=== PATIENT | male | born 1950 | race Caucasian/White ===

== ENCOUNTER → 2016-09-23 | Outpatient (CLI) | payer MEDICARE ==
[2016-03-06 14:22] VITALS: BP 110/74
[~2016-09-23] MED LIST: ASPI325T4 PO; ATOR40TA59 PO; BRIM5DRO3 OP; CHOL100013 PO; DORZ10DR21 OP; HYDR-2762 PO; OMEP20CA9 PO; OXYC-244 PO; OXYC-250 PO; THEO400T2 PO; [UNRECOGNIZED DRUG - CODE] MC; [UNRECOGNIZED DRUG - OTHER]
--- NOTE | 2016-09-24 06:37 | PAIN ---
DATE OF SERVICE: 09/23/2016 PROGRESS NOTE FOR PAIN CLINIC DIAGNOSES: Lumbar radiculopathy with lumbar degenerative disk disease. HISTORY OF PRESENT ILLNESS: The patient is a 66-year-old male who returns for followup status post lumbar epidural steroid injection. The patient returns to report about 50% improvement after the last injection. Still some pain in the low back and bilateral lower extremities, radiating to thighs and hips and to the lower legs, mostly posteriorly and laterally, little worse on the right than the left, but still present bilaterally. The patient reports no new motor or sensory deficits, rates his pain as 6 on a scale of 10, describes some dull pain with some sharp pain in the right leg, mainly in the lateral and posterior thigh. The patient reports no new motor or sensory deficits; however, no new bowel or bladder deficits or other complaints. PHYSICAL EXAMINATION: VITAL SIGNS: The patient's blood pressure is 136/96, pulse 73, respirations are 18, temperature is 98.2 degrees Fahrenheit and weight is 254 pounds. GENERAL: The patient is awake, alert, oriented, and appropriate. HEENT: Shows normocephalic, atraumatic. The patient's oral cavity shows mucous membranes are moist and pink. Dentition is intact. NECK: Shows anterior throat supple without palpable lymphadenopathy noted. Swallow reflex is symmetrical. CHEST: Shows normal on inspection. Breath sounds are clear to auscultation bilaterally. HEART: Shows S1 and S2 clear. ABDOMEN: Soft, nontender, nondistended. No palpable organomegaly. No rebound or guarding demonstrated. BACK: Shows spine grossly in the midline. Normal appearing thoracic kyphosis and lumbar lordotic curvature. No previous bruises, lesions, rashes or scars are noted. Lumbar paraspinous musculature shows symmetrical on inspection, moderate tenderness with palpation only in the low lumbar distribution bilaterally without radiation, without atrophy, hypertrophy. No tenderness over the sacrum or sacroiliac regions. EXTREMITIES: Lower extremities showed deep tendon reflexes at 1+ in the patellar and tendo calcaneus tendons, equal. Motor exam is strong with 5/5 dorsiflexion, extension, quadriceps and hamstring flexion and equal and symmetrical as well. Options were discussed with the patient at this time. The patient's old chart was reviewed and his current medication regimen updated. Current review of systems updated today as well. We will proceed with a second lumbar epidural steroid injection with fluoroscopic guidance. Risks were again discussed including, but not limited to bleeding, infection, possibility of epidural hematoma, subsequent neurological compromise, dural puncture, headaches, spinal cord and/or nerve damage, side effects of steroid medication and poor results regarding pain control. The patient understands and wishes to proceed. The patient will return to clinic in approximately 2 weeks for followup, was counseled on return appointment, activity level and side effects to be aware of. DIAGNOSES: Lumbar radiculopathy with lumbar degenerative disk disease. PROCEDURES: Lumbar epidural steroid injection in translaminar approach at the L5-S1 level using C-arm fluoroscopic guidance under sterile prep and drape using local anesthetic. MEDICATION INJECTED: 120 mg Depo-Medrol plus 10 mL of preservative-free normal saline and 2 mL of Isovue for contrast. CONDITION AT DISCHARGE: Stable. The patient tolerated the procedure well, had no complications. JUAN TAYLOR MD DR: SHIKHA/akash JOB#: [id number] / [id number]
== END | disposition home or self-care (01) ==
LOC: PNCL 07:42
PROVIDERS: ATTEND Anesthesiology
DX: M51.16 Intervertebral disc disorders with radiculopathy, lumbar region (principal)
CPT/HCPCS: 62323

== ENCOUNTER → 2016-11-17 | Outpatient (CLI) | payer MEDICARE ==
[2016-03-06 14:22] VITALS: BP 110/74
[~2016-11-17] MED LIST changes: +IOHEXOL 180 MG/ML 10 ML VIAL. ONE; +methylPREDNISolone ACETATE 40 MG/ML VIAL. ONE; +methylPREDNISolone ACETATE 80 MG/ML VIAL. ONE
--- NOTE | 2016-11-17 21:49 | PAIN ---
DATE OF SERVICE: 11/17/2016 PROGRESS NOTE FOR PAIN CLINIC DIAGNOSES: Lumbar radiculopathy with lumbar degenerative disk disease. HISTORY OF PRESENT ILLNESS: The patient is a 66-year-old male, who returns for followup status post lumbar epidural steroid injection x 2 on 09/23/2016. The patient reports he did very well with this, pain is returning now for about 60% improvement overall, now this was about 80%, but the pain is beginning to return now in low back, bilateral lower extremities are sharp dull, tight shooting with some burning and tingling radiated in severe pain with activity and standing for more than about 30 minutes or so. The patient reports he ____ about 4 hours at night, because the pain is waking him up ____ trouble with his right knee, which is becoming more and more painful and scheduled for potential evaluation for knee replacement later this summer. The patient reports his pain is a 4 on a scale 10, currently it can be as high as 8 to 9 with standing and walking. The patient reports no new motor or sensory deficits, no new bowel or bladder incontinence or other complaints. PHYSICAL EXAMINATION: VITAL SIGNS: The patient's blood pressure 108/60, pulse 71, respirations are 16, temperature 98.3 degrees Fahrenheit, weight is 253 pounds. GENERAL: The patient is awake, alert, oriented, appropriate, very pleasant demeanor. HEENT: Shows normocephalic, atraumatic. Extraocular movements are intact and symmetrical. Oral cavity, mucous membranes moist and pink. Dentition is intact. NECK: Shows anterior throat supple without palpable lymphadenopathy noted. Swallow reflex is symmetrical. CHEST: Shows normal on inspection. Breath sounds clear to auscultation bilaterally. HEART: Shows S1 and S2 clear. No murmurs auscultated. ABDOMEN: Obese, soft, nontender, nondistended. No palpable organomegaly is noted. No rebound or guarding demonstrated. BACK: The patient's back shows spine grossly midline. Normal appearing thoracic kyphosis and lumbar lordotic curvature. Lumbar paraspinous muscle shows some moderate tenderness to palpation, but only diffusely and appears symmetrical on inspection. No tenderness over the sacrum or sacroiliac regions. EXTREMITIES: Lower extremities showed deep tendon reflexes 1+ in the patellar and tendo calcaneus tendons. Motor exam is strong and equal with 5/5 dorsiflexion, extension, quadriceps and hamstring flexion and symmetrical. Options were discussed with the patient and the patient's old chart was reviewed as his current medication regimen updated. Current review of systems updated today as well. We will proceed with a third in the series of lumbar epidural steroid injection today with fluoroscopic guidance. Risks were again discussed including, but not limited to bleeding, infection, possibility of epidural hematoma, subsequent neurologic compromise, dural puncture, headaches, spinal cord and/or nerve damage, side effects of steroid medication and poor results regarding pain control. The patient understands and wishes to proceed. The patient will return to clinic in approximately 2 weeks for followup. He was counseled as to return appointment, activity level and side effects to be aware of. DIAGNOSES: Lumbar radiculopathy with lumbar degenerative disk disease. PROCEDURES: Lumbar epidural steroid injection in translaminar approach at the L5-S1 level using fluoroscopic guidance under sterile prep and drape using local anesthetic. MEDICATIONS INJECTED: Depo-Medrol 120 mg plus 10 mL preservative-free normal saline and 2 mL Isovue for contrast. CONDITION AT DISCHARGE: Stable. The patient tolerated the procedure well and had no complications. JUAN TAYLOR MD DR: SHIKHA/akash JOB#: [id number] / [id number]
== END | disposition home or self-care (01) ==
LOC: PNCL 07:48
PROVIDERS: ATTEND Anesthesiology
DX: M51.16 Intervertebral disc disorders with radiculopathy, lumbar region (principal)
CPT/HCPCS: 62323; J1030; J1040

== ENCOUNTER → 2017-01-30 | Outpatient (CLI) | payer MEDICARE ==
[2016-03-06 14:22] VITALS: BP 110/74
[~2017-01-30] MED LIST changes: -ASPI325T4 PO; +ASPI325T8 PO; -OXYC-244 PO; -OXYC-250 PO; +OXYC-327 PO; +OXYC-328 PO
== END | disposition home or self-care (01) ==
LOC: PNCL 08:28
PROVIDERS: ATTEND Anesthesiology
DX: M51.16 Intervertebral disc disorders with radiculopathy, lumbar region (principal); Z88.0 Allergy status to penicillin; Z88.2 Allergy status to sulfonamides; Z88.7 Allergy status to serum and vaccine
CPT/HCPCS: 62323; J1030; J1040

== ENCOUNTER → 2017-04-03 | Outpatient (CLI) | payer MEDICARE ==
[2016-03-06 14:22] VITALS: BP 110/74
--- NOTE | 2017-04-03 21:06 | PAIN ---
DATE OF SERVICE: 04/03/2017 DIAGNOSIS: Lumbar radiculopathy with lumbar degenerative disk disease. HISTORY OF PRESENT ILLNESS: The patient is a 66-year-old male who returns for followup status post lumbar epidural steroid injection x 1, last seen 01/30/2017. The patient reports he did very well with this with about a 70% improvement overall. Pain returning now over the past few weeks in the low back, bilateral lower extremities, mostly posterior gluteus, posterior thighs, posterior calf, tingling, burning, cramping, stabbing, dull, sharp, tight, shooting, aching, radiating, can be constant or severe, worse with standing. It is better with sitting or lying down. The patient reports it wakes him from sleep occasionally, but not every night. He sleeps up to 4-5 hours at a time. The patient's pain is a 10 on a scale of 10 at its worst, 6 at its least, its average about 6. The patient reports no new motor or sensory deficits, no new bowel or bladder incontinence or other complaints. PHYSICAL EXAMINATION: VITAL SIGNS: The patient's blood pressure 129/81, pulse 83, respirations 18, temperature 98.1 degrees Fahrenheit, height 6 feet 1 inch, weight is 245 pounds. GENERAL: The patient is awake, alert, oriented, appropriate, very pleasant demeanor. HEENT: Head shows normocephalic, atraumatic. Extraocular movements are intact, symmetrical. Oral cavity, mucous membranes are moist and pink. Dentition is intact. NECK: Shows anterior throat supple. Swallow reflex is symmetrical. Neck shows full rotational motion of the cervical spine without difficulty. LUNGS: Breath sounds show clear to auscultation bilaterally. HEART: Shows S1 and S2 clear. No murmurs auscultated. ABDOMEN: Obese, soft, nontender, nondistended. BACK: Shows spine grossly midline. Normal appearing thoracic kyphosis and mild flattening of lumbar lordotic curvature. Lumbar paraspinous musculature shows symmetrical on inspection with palpation. Shows moderate tenderness with palpation, but only in the low lumbar distribution bilaterally, but only diffusely without radiation. No tenderness over the sacrum or sacroiliac regions. LOWER EXTREMITIES: Showed deep tendon reflexes 1+ in the patellar and tendo calcaneus tendons. Motor exam is strong with 5/5 dorsiflexion, extension, quadriceps and hamstring flexion and equal. Peripheral pulses are 1+ posterior tibial bilaterally. The patient has a drain on his left lateral hip from recent surgery about a week and a half ago by his report with clean and intact dressing, no drainage. Drain is dry and reports it has been for several days. He is having this removed later this week. Options were discussed with the patient and the patient's old chart was reviewed as his current medication regimen and updated. Current review of systems updated today as well. We will proceed with a second in the series of lumbar epidural steroid injection with fluoroscopic guidance. Risks were again discussed including, but not limited to bleeding, infection, possibility of epidural hematoma and subsequent neurologic compromise, dural puncture, headaches, spinal cord and/or nerve damage, side effects of steroid medication and poor results regarding pain control. The patient understands and wishes to proceed. The patient will return to clinic in approximately 2 weeks for followup, was counseled on return appointment, activity level and side effects to be aware of. The patient was given refill prescription for oxycodone 10 mg with instructions and side effects to be aware of discussed as well. Discussed maintaining hydration as well as the patient's diet, exercise and weight loss and he will maintain his exercise regimen as best he can. Again with his hip healing, this may improve once this is further healed. DIAGNOSIS: Lumbar radiculopathy with lumbar degenerative disk disease. PROCEDURE: Lumbar epidural steroid injection in translaminar approach at the L5-S1 level using C-arm fluoroscopic guidance under sterile prep and drape using local anesthetic. MEDICATIONS INJECTED: A total of 120 mg Depo-Medrol plus 10 mL of preservative-free normal saline and 2 mL of Isovue for contrast. CONDITION AT DISCHARGE: Stable. The patient tolerated procedure well, had no complications. JUAN TAYLOR MD DR: SHIKHA/akash JOB#: [id number] / [id number]
== END | disposition home or self-care (01) ==
LOC: PNCL 08:38
PROVIDERS: ATTEND Anesthesiology
DX: M51.16 Intervertebral disc disorders with radiculopathy, lumbar region (principal); Z88.0 Allergy status to penicillin; Z88.2 Allergy status to sulfonamides; Z88.7 Allergy status to serum and vaccine
CPT/HCPCS: 62323; J1030; J1040

== ENCOUNTER → 2017-07-25 | Outpatient (CLI) | payer MEDICARE ==
[~2017-07-25] MED LIST changes: -ASPI325T8 PO; -ATOR40TA59 PO; -BRIM5DRO3 OP; -CHOL100013 PO; -DORZ10DR21 OP; -HYDR-2762 PO; +IOHEXOL 180 MG/ML 10 ML VIAL.; -IOHEXOL 180 MG/ML 10 ML VIAL. ONE; -OMEP20CA9 PO; -OXYC-327 PO; -OXYC-328 PO; -THEO400T2 PO; -[UNRECOGNIZED DRUG - CODE] MC; -[UNRECOGNIZED DRUG - OTHER]; +methylPREDNISolone ACETATE 40 MG/ML VIAL.; -methylPREDNISolone ACETATE 40 MG/ML VIAL. ONE; +methylPREDNISolone ACETATE 80 MG/ML VIAL.; -methylPREDNISolone ACETATE 80 MG/ML VIAL. ONE
== END | disposition home or self-care (01) ==
LOC: PNCL 07:53
DX: M51.16 Intervertebral disc disorders with radiculopathy, lumbar region (principal); Z88.0 Allergy status to penicillin; Z88.2 Allergy status to sulfonamides; Z88.7 Allergy status to serum and vaccine
CPT/HCPCS: 62323; J1030; J1040

== ENCOUNTER → 2017-09-26 | Outpatient (CLI) | payer MEDICARE | END | disposition home or self-care (01) | LOC: PNCL 08:00 | DX: M51.16 Intervertebral disc disorders with radiculopathy, lumbar region (principal); Z79.899 Other long term (current) drug therapy; M54.5 Low back pain; Z88.2 Allergy status to sulfonamides; Z88.0 Allergy status to penicillin; Z88.7 Allergy status to serum and vaccine | CPT/HCPCS: 62323; J1030; J1040; Q9965 ==

== ENCOUNTER → 2017-11-21 | Outpatient (CLI) | payer MEDICARE | END | disposition home or self-care (01) | LOC: PNCL 11:23 | DX: M51.16 Intervertebral disc disorders with radiculopathy, lumbar region (principal); Z88.0 Allergy status to penicillin; Z88.2 Allergy status to sulfonamides; Z88.7 Allergy status to serum and vaccine | CPT/HCPCS: 62323; J1030; J1040; Q9965 ==

== ENCOUNTER → 2018-01-22 | Outpatient (CLI) | payer MEDICARE ==
[~2018-01-22] MED LIST changes: +LIDOCAINE 1% PF 2 ML VIAL.
== END ==
LOC: PNCL 07:38
DX: M51.16 Intervertebral disc disorders with radiculopathy, lumbar region (principal); Z79.82 Long term (current) use of aspirin; Z88.0 Allergy status to penicillin; Z88.2 Allergy status to sulfonamides; Z88.7 Allergy status to serum and vaccine
CPT/HCPCS: 62323; J1030; J1040; Q9965

== ENCOUNTER → 2018-03-19 | Outpatient (CLI) | payer MEDICARE ==
[2016-03-06 14:22] VITALS: BP 110/74
[~2018-03-19] MED LIST changes: +ASPI325T8 PO; +ATOR40TA59 PO; +BRIM5DRO3 OP; +CHOL100013 PO; +DORZ10DR21 OP; +HYDR-2762 PO; -IOHEXOL 180 MG/ML 10 ML VIAL.; -LIDOCAINE 1% PF 2 ML VIAL.; +MELO7.5T29 PO; +OMEP20CA9 PO; +OXYC-327 PO; +OXYC-328 PO; +TAMS0.4C2 PO; +THEO400T2 PO; +[UNRECOGNIZED DRUG - CODE] MC; +[UNRECOGNIZED DRUG - OTHER]; -methylPREDNISolone ACETATE 40 MG/ML VIAL.; -methylPREDNISolone ACETATE 80 MG/ML VIAL.
--- NOTE | 2018-03-19 08:55 | PAIN ---
DATE OF SERVICE: 03/19/2018 PROGRESS NOTE FOR PAIN CLINIC DIAGNOSIS: Lumbar radiculopathy with lumbar degenerative disk disease this point. HISTORY OF PRESENT ILLNESS: The patient is a 67-year-old male who returns for followup status post lumbar epidural steroid injection x 1, this series 01/22/2018. The patient reports about 50% improvement overall, but he recently 2 weeks ago had knee surgery on his right knee with knee replacement and is doing well. He is rehabbing with this, reports he has had some significant pain, which is alter his back and he has been having to walk differently with his knee but otherwise doing much better. The patient reports his pain is 8 on a scale of 10 on average and 10 at its worst, 5 at its least and is a 5 today. The patient reports it is aching, sharp, dull, tight, shooting, cramping, tingling, burning with radiating pain becoming constant at times with walking and standing. No new motor or sensory deficits and no new bowel or bladder incontinence or other complaints. The patient reports that his knee is rehabing well. He has had about 2 weeks since the surgery after replacement and his back is already feeling a little bit better. The patient reports he is sleeping well at night, does not bother him when he is off his feet, sitting, lying down, mostly with walking and standing. PHYSICAL EXAMINATION: VITAL SIGNS: The patient's blood pressure 130/82, pulse 109, respirations 18, temperature 98.8 degrees Fahrenheit, height 6 feet and weight is 237 pounds. GENERAL: The patient is awake, alert, oriented, appropriate and very pleasant demeanor. HEENT: Head is normocephalic and atraumatic. Extraocular movements intact and symmetrical. Oral cavity: Mucous membranes are moist and pink. Dentition is intact. NECK: Shows anterior throat supple without palpable lymphadenopathy noted. Swallow reflex symmetrical. CHEST: Shows normal on inspection. Breath sounds clear to auscultation bilaterally. HEART: Shows S1 and S2 clear. No murmurs auscultated. ABDOMEN: Soft, nontender and nondistended. No palpable organomegaly is noted. No rebound or guarding demonstrated. BACK: Shows spine grossly in the midline. Normal appearing thoracic kyphosis and lumbar lordotic curvature. Lumbar paraspinous muscle shows symmetrical on inspection and palpation shows some moderate tenderness but only diffusely bilaterally without radiation, without asymmetry, without atrophy or hypertrophy, no trigger points. The patient has good rotational motion of the lumbar spine, both laterally as well as extension and flexion without significant difficulty. EXTREMITIES: Lower extremity shows a well-healed and bandaged right knee with a supportive brace. Dorsiflexion, extension is intact at 5/5. Deep tendon reflexes are 1+ in the tendo-calcaneus tendons bilaterally. Peripheral pulses are 1+ posterior tibial bilaterally without edema noted. Options were discussed with the patient. The patient's old chart was reviewed as well as his current medication regimen updated. Current review of systems is updated today as well. We will hold on any further injections at this time as the patient's back is doing quite a bit better. He would like to wait for rehabilitation with his need to complete as well prior to any more injections. We will refill his oxycodone 10 mg. The patient was given instruction as well as side effects to be aware of. The patient has had appropriate K-TR[facility] reporting as well as appropriate urinalysis to date with the medications refilled thus for a 2-month period. The patient will return to clinic within the next 2 months or as necessary, sooner if his back becomes more painful. He has radicular pain becomes more noticeable. The patient was encouraged to maintain his rehabilitation with his knee as instructed and will follow up in approximately 2 months or sooner as necessary. JUAN TAYLOR MD DR: SHIKHA/akash JOB#: [id number] / [id number]
== END | disposition home or self-care (01) ==
LOC: PNCL 07:45
PROVIDERS: ATTEND Anesthesiology
DX: M51.16 Intervertebral disc disorders with radiculopathy, lumbar region (principal); K21.9 Gastro-esophageal reflux disease without esophagitis; Z96.643 Presence of artificial hip joint, bilateral; Z90.49 Acquired absence of other specified parts of digestive tract; Z88.2 Allergy status to sulfonamides; Z88.7 Allergy status to serum and vaccine; Z88.0 Allergy status to penicillin
CPT/HCPCS: G0463

== ENCOUNTER → 2018-05-18 | Outpatient (CLI) | payer MEDICARE ==
[2016-03-06 14:22] VITALS: BP 110/74
[~2018-05-18] MED LIST changes: +IOHEXOL 180 MG/ML 10 ML VIAL. ONE; +LIDOCAINE 1% PF 2 ML VIAL. ONE; +methylPREDNISolone ACETATE 40 MG/ML VIAL. ONE; +methylPREDNISolone ACETATE 80 MG/ML VIAL. ONE
--- NOTE | 2018-05-19 04:13 | PAIN ---
DATE OF SERVICE: 05/18/2018 DIAGNOSES: Lumbar radiculopathy with lumbar degenerative disk disease. HISTORY OF PRESENT ILLNESS: The patient is a 67-year-old male who returns for followup status post lumbar epidural steroid injection x 1 this series. The patient did very well with about 50-75% improvement initially. The patient recently had his knee replaced and is doing much better with his right knee. The patient reports he is continuing through the rehab process with his right knee and doing quite well with it and is feeling much better with his right knee. The patient reports still significant pain in the low back radiating to the bilateral lower extremities, posterior gluteus, posterior thighs, somewhat worse on the left now and into the lower leg, into the calf and foot. The patient reports it is aching, sharp, tight, shooting, dull, burning, tingling, radiating, becoming more constant, more severe with walking, worse with standing, changing positions, better with sitting or lying down, but does awakening him sleep about every 4-5 hours, especially if he lies on his left side. The patient reports initially it decreased his distance walking, doing household activity with greater ease and comfort, but now these are becoming more noticeably painful. No new motor or sensory deficits reported. The patient reports no new bowel or bladder incontinence. PHYSICAL EXAMINATION: VITAL SIGNS: The patient's blood pressure 142/84, pulse 72, respirations 16, temperature 98.4 degrees Fahrenheit, height is 6 feet, weight is 244 pounds. GENERAL: The patient is awake, alert, oriented, appropriate, very pleasant demeanor. HEENT: Shows normocephalic, atraumatic. Extraocular movements are intact and symmetrical. Oral cavity: Mucous membranes moist and pink. Dentition is intact. NECK: Shows anterior throat supple without palpable lymphadenopathy noted. Swallow reflex is symmetrical. CHEST: Shows normal on inspection. Breath sounds clear to auscultation bilaterally. HEART: Shows S1, S2 clear. No murmurs auscultated. ABDOMEN: Obese, soft, nontender, nondistended. No palpable organomegaly is noted. No rebound or guarding demonstrated. BACK: Shows spine grossly in the midline. Normal appearing thoracic kyphosis and some slight flattening of lumbar lordotic curvature. Lumbar paraspinous muscle shows symmetrical on inspection. On palpation shows some moderate tenderness diffusely bilaterally, but only in the low lumbar distribution without radiation. The patient shows no difficulty with rotational motion both laterally as well as extension and flexion, no tenderness over the sacrum or sacroiliac regions. EXTREMITIES: The patient's lower extremities show deep tendon reflexes at 1+ in the patellar and tendo calcaneus tendons are equal. Motor exam is strong with 5/5 dorsiflexion, extension, quadriceps and hamstring flexion and symmetrical. Peripheral pulses are 1+ posterior tibia. No peripheral edema is noted bilaterally. Options were discussed with the patient. The patient's old chart was reviewed as is his current medication regimen updated. Current review of systems is updated today as well. We will proceed with second in a series of lumbar epidural steroid injection today with fluoroscopic guidance. Risks were again discussed including, but not limited to bleeding, infection, possibility of epidural hematoma, subsequent neurologic compromise, dural puncture, headaches, spinal cord and/or nerve damage, side effects of steroid medication and poor results regarding pain control. The patient understands and wished to proceed. The patient will return to the clinic in approximately 2 weeks for followup, was counseled on return appointment, activity level and side effects to be aware of. DIAGNOSES: Lumbar radiculopathy with lumbar degenerative disk disease. PROCEDURE: Lumbar epidural steroid injection, translaminar approach at L5-S1 level using C-arm fluoroscopic guidance under sterile prep and drape using local anesthetic. MEDICATION INJECTED: A total of 120 mg Depo-Medrol plus 10 mL of preservative-free normal saline and 2 mL of Isovue for contrast. CONDITION AT DISCHARGE: Stable. The patient tolerated the procedure well, had no complications. JUAN TAYLOR MD DR: SHIKHA/akash JOB#: [id number] / [id number]
== END | disposition home or self-care (01) ==
LOC: PNCL 10:34
PROVIDERS: ATTEND Anesthesiology
DX: M51.16 Intervertebral disc disorders with radiculopathy, lumbar region (principal); Z88.0 Allergy status to penicillin; Z88.2 Allergy status to sulfonamides; Z88.7 Allergy status to serum and vaccine
CPT/HCPCS: 62323; J1030; J1040; Q9965

== ENCOUNTER → 2018-08-02 | Outpatient (CLI) | payer MEDICARE ==
[2016-03-06 14:22] VITALS: BP 110/74
[~2018-08-02] MED LIST changes: -HYDR-2762 PO; +HYDR-2765 PO; -LIDOCAINE 1% PF 2 ML VIAL. ONE; -OXYC-327 PO; -OXYC-328 PO; +OXYC1TAB19 PO; +OXYC1TAB22 PO
--- NOTE | 2018-08-02 08:41 | PAIN ---
DATE OF SERVICE: 08/02/2018 DIAGNOSES: Lumbar radiculopathy with lumbar degenerative disk disease. HISTORY OF PRESENT ILLNESS: The patient is a 68-year-old white male who returns for followup status post lumbar epidural steroid injection x 2, last seen on 05/18/2018. The patient did very well with about 60% improvement overall with the medication. The patient reports no new motor or sensory deficits, no new changes, still pain in the low back, bilateral lower extremities, mostly in the posterior gluteus, posterior thighs, posterior calf, more on the left than the right, present with walking, standing, changing positions, better with sitting or lying down, awakened him from sleep, but only about once every 6 hours or so. The patient reports no new motor or sensory deficits. The pain was decreased significantly for about 2 months. The patient is also taking oxycodone on a regular basis at 10 mg as well without side effects. The patient reports his pain is a 9 on a scale of 10 at its worst, 5 at its least, 9 on average and is a 5 today. The patient reports it is aching, sharp, dull, tight, shooting, tingling, burning, cramping, stabbing, becoming more severe, more radiating, on and off in intensity, however. The patient reports no new motor or sensory deficits, no new bowel or bladder incontinence or other complaints. PHYSICAL EXAMINATION: VITAL SIGNS: The patient's blood pressure is 138/89, pulse 77, respirations 16, temperature 98.0 degrees Fahrenheit, height 6 feet, weight is 243 pounds. GENERAL: The patient is awake, alert, oriented, appropriate, very pleasant demeanor. HEENT: Head is normocephalic, atraumatic. Extraocular movements are intact and symmetrical. Oral cavity: Mucous membranes moist and pink. Dentition is intact. NECK: Shows anterior throat supple without palpable lymphadenopathy noted. Swallow reflex symmetrical. CHEST: Shows normal with inspection. Breath sounds clear to auscultation bilaterally. HEART: Shows S1, S2 clear. No murmurs auscultated. ABDOMEN: Soft, nontender, nondistended. No palpable organomegaly is noted. No rebound or guarding demonstrated. BACK: Shows spine grossly in the midline. Normal appearing thoracic kyphosis and lumbar lordotic curvature. Lumbar paraspinous muscle shows symmetrical on inspection, with palpation shows some moderate tenderness only diffusely in the low lumbar distribution without radiation. The patient shows no difficulty with rotational motion of the lumbar spine, both laterally as well as extension and flexion without difficulty. EXTREMITIES: The patient's lower extremities show deep tendon reflexes at 1+ in the patellar and tendo calcaneus tendons are equal. Motor exam is strong with 5/5 dorsiflexion, extension, quadriceps and hamstring flexion and equal. Peripheral pulses are 1+. No peripheral edema is noted. Options were discussed with the patient. The patient's old chart was reviewed as his current medications regimen updated. Current review of systems updated as well. We will proceed with a third in the series of lumbar epidural steroid injection today with fluoroscopic guidance. Risks were again discussed including, but not limited to bleeding, infection, possibility of epidural hematoma, subsequent neurological compromise, dural puncture, headaches, spinal cord and/or nerve damage, side effects of steroid medication and poor results regarding pain control. The patient understands and wished to proceed. The patient will return to clinic in approximately 2 weeks for followup, was counseled on return appointment, activity level and side effects to be aware of. DIAGNOSES: Lumbar radiculopathy with lumbar degenerative disk disease. PROCEDURES: Lumbar epidural steroid injection, translaminal approach, at L5-S1 level using C-arm fluoroscopic guidance under sterile prep and drape using local anesthetic. MEDICATION INJECTED: A total of 120 mg Depo-Medrol, plus 10 mL of preservative-free normal saline and 2 mL of Isovue for contrast. CONDITION AT DISCHARGE: Stable. The patient tolerated procedure well, had no complications. JUAN TAYLOR MD DR: SHIKHA/akash JOB#: [id number] / [id number]
== END | disposition home or self-care (01) ==
LOC: PNCL 07:35
PROVIDERS: ATTEND Anesthesiology
DX: M51.16 Intervertebral disc disorders with radiculopathy, lumbar region (principal); Z88.0 Allergy status to penicillin; Z88.2 Allergy status to sulfonamides; Z88.7 Allergy status to serum and vaccine
CPT/HCPCS: 62323; J1030; J1040; Q9965

== ENCOUNTER → 2018-09-27 | Outpatient (CLI) | payer MEDICARE ==
[2016-03-06 14:22] VITALS: BP 110/74
[~2018-09-27] MED LIST changes: +OMEP20CA10 PO; -OMEP20CA9 PO
--- NOTE | 2018-09-27 18:42 | PAIN ---
DATE OF SERVICE: 09/27/2018 DIAGNOSIS: Lumbar radiculopathy with lumbar degenerative joint. HISTORY OF PRESENT ILLNESS: The patient is a 68-year-old male who returns for followup status post lumbar epidural steroid injection x 3, most recently in 08/02/2018. The patient did very well, about 50% improvement overall. The patient reports still pain in the low back, bilateral lower extremities, did very well for several weeks for the first month or so. Pain was significantly reduced. Then about the last 2-3 weeks, his pain has begun to return to again about 50% level as it was previously. The patient reports it is 10 on a scale of 10 at its worst, 7 on average, 5 at its least and is 5 today. The patient reports it is in the low, came back fairly quickly, initially in the posterior gluteus, posterior thighs, posterior calf with tingling, burning, stabbing, radiating, becoming more constant, more severe with walking, standing, also aching, sharp in the back, dull, tight and some shooting pain across the back as well. 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 This is becoming more cumbersome and more noticeable at work as well with the pain. The patient reports otherwise no new motor or sensory deficits, no new bowel or bladder incontinence or other complaints. PHYSICAL EXAMINATION: VITAL SIGNS: The patient's blood pressure is 134/79, pulse 79, respirations 18, temperature 97.9 degrees Fahrenheit, height 6 feet, weight is 250 pounds. GENERAL: The patient is awake, alert, oriented, appropriate, very pleasant demeanor. HEENT: Head is normocephalic, atraumatic. Extraocular muscles are intact and symmetrical. Oral cavity: Mucous membranes moist and pink. Dentition is intact. NECK: Shows anterior throat supple without palpable lymphadenopathy noted. Swallow reflex is symmetrical. CHEST: Shows normal on inspection. Breath sounds clear to auscultation bilaterally. HEART: Shows S1, S2 clear. No murmurs auscultated. ABDOMEN: Soft, nontender, nondistended. No palpable organomegaly is noted. No rebound or guarding demonstrated. BACK: The patient's back shows spine grossly in the midline. Normal-appearing thoracic kyphosis, mild flattening of lumbar lordotic curvature, lumbar paraspinous muscle shows symmetrical on inspection. Palpation shows some moderate tenderness diffusely, but without radiation. EXTREMITIES: The patient's lower extremities show deep tendon reflexes at 1+ in the patellar and tendo calcaneus tendons are equal. Motor exam is 5/5 with dorsiflexion, extension, quadriceps and hamstring flexion is symmetrical. Peripheral pulses are 1+ posterior tibia. No peripheral edema is noted bilaterally. Options were discussed with the patient. The patient's old chart was reviewed as was his current medication regimen updated. Current review of systems updated today as well. We will proceed with a first in this series of lumbar epidural steroid injection today with fluoroscopic guidance. Risks were again discussed including, but not limited to bleeding, infection, possibility of epidural hematoma, subsequent neurologic compromise, dural puncture, headaches, spinal cord and/or nerve damage, side effects of steroid medication and poor results regarding pain control. The patient understands and wished to proceed. The patient will return to clinic in approximately 1 month for followup, was counseled as to return appointment, activity level and side effects to be aware of. The patient also did very well with his medication regimen of oxycodone 10 mg taking this up to 4 times daily without side effects. The patient has had appropriate K-TRACS reporting as well as appropriate urinalysis to date. We have refill the patient's for 2-month prescription on oxycodone 10 mg with instructions and side effects to be aware of discussed. The patient will have urinalysis today, routine screening as well and renew the patient's narcotic contract. DIAGNOSIS: Lumbar radiculopathy with lumbar degenerative disk disease. PROCEDURE: Lumbar epidural steroid injection, translaminar approach L5-S1 level using C-arm fluoroscopic guidance under sterile prep and drape using local anesthetic. MEDICATION INJECTED: A total of 120 mg Depo-Medrol plus 10 mL preservative-free normal saline and 2 mL of Isovue for contrast. CONDITION AT DISCHARGE: Stable. The patient tolerated the procedure well, had no complications. JUAN TAYLOR MD DR: SHIKHA/akash JOB#: [id number] / [id number]
== END | disposition home or self-care (01) ==
LOC: PNCL 07:43
PROVIDERS: ATTEND Anesthesiology
DX: M51.16 Intervertebral disc disorders with radiculopathy, lumbar region (principal); Z88.0 Allergy status to penicillin; Z88.2 Allergy status to sulfonamides; Z88.7 Allergy status to serum and vaccine
CPT/HCPCS: 62323; J1030; J1040; Q9965

== ENCOUNTER → 2018-11-22 | Outpatient (CLI) | payer MEDICARE ==
[2016-03-06 14:22] VITALS: BP 110/74
--- NOTE | 2018-11-22 22:39 | PAIN ---
DATE OF SERVICE: 11/22/2018 DIAGNOSES: Lumbar radiculopathy with lumbar degenerative disk disease. HISTORY OF PRESENT ILLNESS: The patient is a 68-year-old male who returns for followup status post lumbar epidural steroid injection x 1, on 09/27/2018. The patient did very well with about 90% improvement initially, now about 30% overall. 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 The patient reports it is still better with lying down, but occasionally awakens him from sleep about every 4-6 hours, the patient reports over the past few weeks. The patient reports no new motor or sensory deficits. Over the past 2 weeks, the pain has returned. Other than that, he was doing quite well prior to the last 2 weeks. The patient reports no new motor or sensory deficits, no new bowel or bladder incontinence or other complaints. PHYSICAL EXAMINATION: VITAL SIGNS: The patient's blood pressure is 144/83, pulse 79, respirations 18, temperature 98.0 degrees Fahrenheit, height 6 feet, weighs 259 pounds. GENERAL: The patient is awake, alert, oriented, appropriate, very pleasant demeanor. HEENT: Head is normocephalic, atraumatic. Extraocular movements are intact, symmetrical. Oral cavity: Mucous membranes moist and pink. Dentition is intact. NECK: Shows anterior throat supple without palpable lymphadenopathy noted. Swallow reflex symmetrical. CHEST: Shows normal on inspection. Breath sounds clear to auscultation bilaterally. HEART: Shows S1, S2 clear. No murmurs auscultated. ABDOMEN: Soft, nontender, nondistended. No palpable organomegaly is noted. No rebound or guarding demonstrated. BACK: Shows spine grossly in the midline. Normal appearing thoracic kyphosis and minor flattening of lumbar lordotic curvature. Lumbar paraspinous muscle shows symmetrical on inspection, with palpation shows some moderate tenderness diffusely bilaterally, but only diffusely without radiation. The patient has good rotational motion of lumbar spine, both laterally as well as extension and flexion without significant pain reported. EXTREMITIES: Lower extremities show deep tendon reflexes at 1+ in the patellar and tendo calcaneus tendons are equal. Motor exam is strong with 5/5 dorsiflexion, extension, quadriceps and hamstring flexion are equal. Peripheral pulses are 1+ posterior tibial. No peripheral edema bilaterally. Options were discussed with the patient. The patient's old chart was reviewed as his current medication regimen updated. Current review of systems updated today as well. We will proceed with a second in the series of lumbar epidural steroid injection today with fluoroscopic guidance. Risks were again discussed including, but not limited to bleeding, infection, possibility of epidural hematoma and subsequent neurological compromise, dural puncture, headaches, spinal cord and/or nerve damage, side effects of steroid medication and poor results regarding pain control. The patient understands and wished to proceed. The patient will return to clinic in approximately 2 weeks for followup, was counseled as to return appointment, activity level and side effects to be aware of. DIAGNOSES: Lumbar radiculopathy with lumbar degenerative disk disease. PROCEDURE: Lumbar epidural steroid injection, translaminar approach L5-S1 level using C-arm fluoroscopic guidance under sterile prep and drape using local anesthetic. MEDICATION INJECTED: A total of 120 mg Depo-Medrol plus 10 mL of preservative-free normal saline and 2 mL of Isovue for contrast. CONDITION AT DISCHARGE: Stable. The patient tolerated the procedure well, had no complications. JUAN TAYLOR MD DR: SHIKHA/akash JOB#: [id number] / [id number]
== END | disposition home or self-care (01) ==
LOC: PNCL 07:39
PROVIDERS: ATTEND Anesthesiology
DX: M51.16 Intervertebral disc disorders with radiculopathy, lumbar region (principal); Z88.0 Allergy status to penicillin; Z88.2 Allergy status to sulfonamides; Z88.7 Allergy status to serum and vaccine
CPT/HCPCS: 62323; J1030; J1040; Q9965

== ENCOUNTER → 2019-01-22 | Outpatient (CLI) | payer MEDICARE ==
[2016-03-06 14:22] VITALS: BP 110/74
--- NOTE | 2019-01-22 09:43 | PAIN ---
DATE OF SERVICE: 01/22/2019 PROGRESS NOTE FOR PAIN CLINIC DIAGNOSIS: Lumbar radiculopathy with lumbar degenerative disk disease. HISTORY OF PRESENT ILLNESS: The patient is a 68-year-old male who returns for followup status post lumbar epidural steroid injection as well as medication management. The patient reports he is doing quite well with about 40% improvement overall after his last injection, still doing better, increasing his activity at home, walking greater distances, doing household activities, home activities, taking care of his young house, etc., with greater ease and comfort. The patient reports pain has begun to return now over the past 3-4 weeks in the low back, bilateral lower extremities, radiating to posterior gluteus, posterior thighs, and posterior calves. The patient reports it is a 10 on a scale of 10 at its worst over the past week, 8 on average, 5 at its least and is a 5 today. The patient reports it is aching, sharp, dull, tight, shooting in the legs, dull and aching in the back, tingling and burning at times, cramping, stabbing, sometimes severe, constant as well with activity, better with sitting or lying down, occasionally awakens him from sleep, but only about 4-5 hours at the most and not every night. The patient reports no new motor or sensory deficits, no new bowel or bladder incontinence or other complaints. PHYSICAL EXAMINATION: VITAL SIGNS: The patient's blood pressure 124/74, pulse 77, respirations 18, temperature 98.5 degrees Fahrenheit. Height is 6 feet 1 inch, weight is 251 pounds. GENERAL: The patient is awake, alert, oriented, appropriate, very pleasant demeanor. HEENT: Head is normocephalic, atraumatic. Extraocular movements are intact and symmetrical. Oral cavity: Mucous membranes moist and pink. Dentition is intact. NECK: Shows anterior throat supple without palpable lymphadenopathy noted. Swallow reflex symmetrical. CHEST: Shows normal with inspection. Breath sounds are clear to auscultation bilaterally. HEART: Shows S1, S2 clear. No murmurs auscultated. ABDOMEN: Soft, nontender, nondistended. No palpable organomegaly is noted. No rebound or guarding demonstrated. BACK: Shows spine grossly in the midline. Normal appearing thoracic kyphosis and lumbar lordotic curvature. Lumbar paraspinous muscle shows symmetrical on inspection. On palpation shows some moderate tenderness diffusely, but only diffusely without significant radiation. The patient has good rotational motion of lumbar spine, both laterally as well as extension and flexion without significant difficulty. EXTREMITIES: Lower extremities show deep tendon reflexes 1+ in the patellar and tendo calcaneus tendons are equal. Motor exam is strong with 5/5 dorsiflexion and extension. Peripheral pulses are 1+ posterior tibial. No peripheral edema is noted. ASSESSMENT AND PLAN: Options were discussed with the patient. The patient's old chart was reviewed, his current medication regimen updated, current review of systems updated today as well. We will proceed with a third in the series of lumbar epidural steroid injection under fluoroscopic guidance. Risks were again discussed including but not limited to bleeding, infection, possibility of epidural hematoma, subsequent neurological compromise, dural puncture, headaches, spinal cord and/or nerve damage, side effects of steroid medication and poor results regarding pain control. The patient understands and wished to proceed. The patient will return to clinic in approximately 2 weeks for followup, was counseled as to return appointment, activity level and side effects to be aware of. DIAGNOSIS: Lumbar radiculopathy with lumbar degenerative disk disease. PROCEDURE: Lumbar epidural steroid injection, translaminar approach L5-S1 level using C-arm fluoroscopic guidance under sterile prep and drape using local anesthetic. MEDICATION INJECTED: A total of 120 mg Depo-Medrol plus 10 mL of preservative-free normal saline and 2 mL of contrast. CONDITION AT DISCHARGE: Stable. The patient tolerated procedure well, had no complications. JUAN TAYLOR MD DR: SHIKHA/akash JOB#: [id number] / [id number]
== END ==
LOC: PNCL 07:38
PROVIDERS: ATTEND Anesthesiology
DX: M51.16 Intervertebral disc disorders with radiculopathy, lumbar region (principal)
CPT/HCPCS: 62323; J1030; J1040; Q9965

== ENCOUNTER → 2019-03-19 | Outpatient (CLI) | payer MEDICARE ==
[2016-03-06 14:22] VITALS: BP 110/74
[~2019-03-19] MED LIST changes: -IOHEXOL 180 MG/ML 10 ML VIAL. ONE; +ONDA4TAB12 PO; +POLY17PO29 PO; -methylPREDNISolone ACETATE 40 MG/ML VIAL. ONE; -methylPREDNISolone ACETATE 80 MG/ML VIAL. ONE
--- NOTE | 2019-03-19 16:05 | PN ---
DATE: 03/19/2019 PROGRESS NOTE FOR PAIN CLINIC DIAGNOSES: Lumbar radiculopathy with lumbar degenerative disk disease. HISTORY OF PRESENT ILLNESS: The patient is a 68-year-old male who returns for followup status post lumbar epidural steroid injection x 3, last on 01/22/2019. The patient did very well with this, about 75% improvement initially, now his pain is returning, is only about 30% improvement at this time. The patient reports pain in the low back, bilateral lower extremities, posterior gluteus, posterior thighs, radiating to posterior calves. The patient also reports some numbness and tingling in the feet, also some stiffness in the hands in the morning and some tingling, which improves after about 30-40 minutes. The patient reports, otherwise, doing well. No new motor or sensory deficits. The patient reports pain in his low back and legs as a 10 on a scale of 10 at its worst over the past week, 7 on average, 5 at its least, and is a 5 today. The patient reports it is aching, sharp, dull, tight, shooting, stabbing, cramping, burning, tingling, can be radiating, constant, severe with increased activity. 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 This is becoming more problematic for his back as well. The patient reports no new motor or sensory deficits, no new bowel or bladder incontinence. PHYSICAL EXAMINATION: VITAL SIGNS: The patient's blood pressure 119/77, pulse 77, respirations 18, temperature 98.4 degrees Fahrenheit, height is 6 feet, weight is 260 pounds. GENERAL: The patient is awake, alert, oriented, appropriate, very pleasant demeanor. HEENT: Shows normocephalic, atraumatic. Extraocular movements are intact and symmetrical. Oral cavity: Mucous membranes moist and pink. Dentition is intact. NECK: Shows anterior throat supple without palpable lymphadenopathy noted. Swallow reflex symmetrical. CHEST: Shows normal on inspection. Breath sounds clear to auscultation bilaterally. HEART: Shows S1, S2 clear. No murmurs auscultated. ABDOMEN: Soft, nontender, nondistended. No palpable organomegaly is noted. No rebound or guarding demonstrated. BACK: Shows spine grossly in the midline. Normal-appearing thoracic kyphosis and minor flattening of lumbar lordotic curvature. Lumbar paraspinous muscle shows symmetrical on inspection, on palpation shows some moderate tenderness diffusely, but only diffusely without significant radiation. EXTREMITIES: The patient's lower extremities show deep tendon reflexes at 1+ in the patellar and tendo calcaneus tendons are equal. Motor exam is 5/5 with dorsiflexion, extension, quadriceps, and hamstring flexion. Peripheral pulses are 1+ posterior tibia. There is approximately 1+ pitting edema in the bilateral ankles as well. Options were discussed with the patient. The patient's old chart was reviewed as his current medication regimen updated. Current review of systems updated today as well. We will refill the patient's oxycodone. The patient has had quite well and has had appropriate K-TRACs reporting and has an appropriate urinalysis to date. We will refill this for 2-month period. Also, the patient will return to clinic in approximately 2 weeks for lumbar epidural steroid injection, as he is about 2 weeks away from 6-month reset from his third injection on 01/22. The patient reports the pain is returning in a radicular fashion. I would like to proceed with another potential series of epidural steroid injections. He does respond quite well to these. The patient will return to clinic in approximately 2 weeks. We will plan on lumbar epidural steroid injection at that time. The patient was given instruction as well as side effects to be aware of with the medication. We will follow up in approximately 2 weeks as scheduled. JUAN TAYLOR MD DR: SHIKHA/akash JOB#: [id number] / [id number]
== END | disposition home or self-care (01) ==
LOC: PNCL 07:37
PROVIDERS: ATTEND Anesthesiology
DX: M51.16 Intervertebral disc disorders with radiculopathy, lumbar region (principal)
CPT/HCPCS: G0463

== ENCOUNTER 2019-03-25 08:46 | Emergency (ER) | payer MEDICARE ==
[~2019-03-25] VITALS: Ht 185.4 cm; Wt 113.4 kg
[~2019-03-25 08:46] MED LIST changes: -ONDA4TAB12 PO; -POLY17PO29 PO
[2019-03-25 09:15] LABS: BILIRUBIN,URINE NEGATIVE (NEG); CLARITY,URINE CLEAR; COLOR,URINE YELLOW; NITRITE,URINE NEGATIVE (NEG); PH,URINE 5.5; PROTEIN,URINE NEGATIVE (NEG-TRACE)
[2019-03-25] MEDS ORDERED: IV NORMAL SALINE 1000ML BAG 1,000 ML IV ONE (09:15)
[2019-03-25] MEDS ORDERED: ONDANSETRON PF 4 MG/2 ML VIAL. IV ONE (09:15)
[2019-03-25] MEDS ORDERED: fentaNYL PF VIAL 100 MCG/2 ML VIAL IV ONE (09:15)
[2019-03-25 09:19] LABS: BASO % 1 % (0-3); EOS % 0 % (0-3); HEMATOCRIT 46.3 % (39.0-53.0); HEMOGLOBIN 15.7 g/dL (13.0-17.5); LYMPH # 1.1 x10^3/uL (1.0-4.8); LYMPH % 26 % (24-48); MEAN CORPUSCULAR HEMOGLOBIN 30 pg (25-35); MEAN CORPUSCULAR HGB CONC 34 g/dL (31-37); MEAN CORPUSCULAR VOLUME 88 fL (79-100); MONO # 0.8 x10^3/uL (0.0-1.1); MONO % 19 % (0-9); NEUT # 2.2 x10^3/uL (1.8-7.7); NEUT % 54 % (31-73); PLATELET COUNT 143 x10^3/uL (140-400); RED BLOOD COUNT 5.27 x10^6/uL (4.30-5.70); RED CELL DISTRIBUTION WIDTH 14.2 % (11.5-14.5); WHITE BLOOD COUNT 4.1 x10^3/uL (4.0-11.0)
[2019-03-25 09:31] LABS: CALCIUM 9.5 mg/dL (8.5-10.1); GFR 74.5; POTASSIUM 3.9 mmol/L (3.5-5.1)
[2019-03-25 09:32] LABS: BACTERIA,URINE 0 /HPF (0-FEW); RBC,URINE 0 /HPF (0-2); SQUAMOUS EPITHELIAL CELL,UR FEW /LPF
[2019-03-25 09:37] LABS: ALBUMIN 3.6 g/dL (3.4-5.0); ALBUMIN/GLOBULIN RATIO 0.9 (1.0-1.7); TOTAL BILIRUBIN 0.8 mg/dL (0.2-1.0); TOTAL PROTEIN 7.6 g/dL (6.4-8.2)
[2019-03-25] MEDS ORDERED: CONTRAST GIVEN. MC PRN (09:45)
[2019-03-25] MEDS ORDERED: IOHEXOL 300 MG/ML 100ML VIAL. IV ONE (09:45)
--- NOTE | 2019-03-25 10:28 | RAD ---
CT ABD PELV W/ IV CONTRST ONLY Indication: Left lower quadrant pain. History of diverticulitis. Exposure: One or more of the following individualized dose reduction techniques were utilized for this examination: 1. Automated exposure control 2. Adjustment of the mA and/or kV according to patient size 3. Use of iterative reconstruction technique. Technique: Intravenous contrast was given. No oral contrast per request. Comparison: None are available FINDINGS: Lung bases are clear. Liver unremarkable. Spleen mildly enlarged, 14.5 cm. Pancreas unremarkable. No adrenal mass. Kidneys demonstrate symmetric enhancement, no evidence of hydronephrosis. Low-density lesion upper pole left kidney measures 4.1 cm and 15 Hounsfield units, likely a cyst. 3.6 cm lesion in the more inferior left kidney measures 16 Hounsfield units also compatible with a cyst. Other smaller renal lesion too small to characterize. No calcified gallstone. Aorta nonaneurysmal. No significant lymph node enlargement. Colonic diverticulosis. No evidence of acute colitis. No significant small bowel distention. No evidence of pneumoperitoneum. No significant ascites. Appendix is not clearly seen. No evidence of pneumoperitoneum. Bilateral hip replacements obscure pelvic structures including the urinary bladder and reproductive organs. Degenerative spondylosis. Vertebral body height and alignment are intact apart from minimal anterolisthesis of L5 on S1. Fat-containing anterior abdominal wall midline hernia. IMPRESSION: 1. Mild splenomegaly. 2. Bilateral renal lesions, most likely cysts. 3. Colonic diverticulosis without evidence of acute colitis. Electronically signed by: Hal Marcano MD (03/25/2019 10:25 AM) [facility]
[2019-03-25] MEDS ORDERED: ONDA4TAB12 PO (10:43)
[2019-03-25] MEDS ORDERED: POLY17PO29 PO (10:43)
--- NOTE | 2019-03-25 10:46 | PHYS DOC ---
Past Medical History Past Medical History: Asthma, Diverticulitis, GERD, Glaucoma Additional Past Medical Histor: chronic back and knee pain Past Surgical History: Appendectomy, Hip Replacement, Other Additional Past Surgical Histo: bilateral hip, (l) ankle, (r) elbow, colon resect, cataract, retina repair Alcohol Use: Occasionally Drug Use: None Adult General Chief Complaint Chief Complaint: ABDOMINAL PAIN HPI HPI Patient is a 68 year old male presenting with lower abdominal discomfort described as a fullness sensation no bowel movement for the last 3 days positive nausea no fever no vomiting he does take oxycodone for chronic knee pain. He was at the [facility] recently no suspect foods that he knows of no diarrhea he has had a history of a colon resection due to diverticulitis symptoms are moderate slowly worsening with time �3 days Review of Systems Review of Systems Constitutional: Denies fever or chills [] Eyes: Denies change in visual acuity, redness, or eye pain [] HENT: Denies nasal congestion or sore throat [] Respiratory: Denies cough or shortness of breath [] Cardiovascular: No additional information not addressed in HPI [] GI: Integument: Denies rash or skin lesions [] Neurologic: Denies headache, focal weakness or sensory changes [] Endocrine: Denies polyuria or polydipsia [] All other systems were reviewed and found to be within normal limits, except as documented in this note. Current Medications Current Medications Current Medications Medications (Trade) Dose Ordered Sig/Chelo Start Time Stop Time Status Last Admin Dose Admin Fentanyl Citrate (Fentanyl 2ml Vial) 50 mcg 1X ONCE 03/25/19 09:15 03/25/19 09:16 DC 03/25/19 09:18 50 MCG Info (CONTRAST GIVEN -- Rx MONITORING) 1 each PRN DAILY PRN 03/25/19 09:45 03/27/19 09:44 Iohexol (Omnipaque 300 Mg/ml) 75 ml 1X ONCE 03/25/19 09:45 03/25/19 09:46 DC 03/25/19 09:57 75 ML Ondansetron HCl (Zofran) 4 mg 1X ONCE 03/25/19 09:15 03/25/19 09:16 DC 03/25/19 09:18 4 MG Sodium Chloride 1,000 ml @ 1,000 mls/hr 1X ONCE 03/25/19 09:15 03/25/19 10:14 DC 03/25/19 09:18 1,000 MLS/HR Allergies Allergies Allergies Coded Allergies Type Severity Reaction Last Updated Verified Penicillins Allergy Severe hives and swelling 06/25/13 Yes Tetanus Vaccines and Toxoid Allergy Severe swelling and hives 06/25/13 Yes Sulfa (Sulfonamide Antibiotics) Allergy Intermediate nausea 05/06/14 Yes Physical Exam Physical Exam Constitutional: Well developed, well nourished, no acute distress, non-toxic appearance. [] HENT: Normocephalic, atraumatic, bilateral external ears normal, oropharynx moist, no oral exudates, nose normal. [] Eyes: PERRLA, EOMI, conjunctiva normal, no discharge. [] Neck: Normal range of motion, no tenderness, supple, no stridor. [] Cardiovascular:Heart rate regular rhythm, no murmur [] Lungs & Thorax: Bilateral breath sounds clear to auscultation [] Abdomen: Bowel sounds normal, soft, mild suprapubic and left lower quadrant tenderness with a well-healed surgical incision noted Skin: Warm, dry, no erythema, no rash. [] Back: No tenderness, no CVA tenderness. [] Extremities: No tenderness, no cyanosis, no clubbing, ROM intact, no edema. [] Neurologic: Alert and oriented X 3, normal motor function, normal sensory functi on, no focal deficits noted. [] Psychologic: Affect normal, judgement normal, mood normal. [] Current Patient Data Vital Signs Vital Signs Date Time Temp Pulse Resp B/P (MAP) Pulse Ox O2 Delivery O2 Flow Rate FiO2 03/25/19 09:18 16 96 03/25/19 08:54 98.2 82 141/88 (105) Room Air 98.2 Lab Values Laboratory Tests Test 03/25/19 08:52 03/25/19 09:04 Urine Collection Type Unknown Urine Color Yellow Urine Clarity Clear Urine pH 5.5 Urine Specific [place] 1.020 Urine Protein Negative mg/dL (NEG-TRACE) Urine Glucose (UA) Negative mg/dL (NEG) Urine Ketones (Stick) Trace mg/dL (NEG) Urine Blood Small (NEG) Urine Nitrite Negative (NEG) Urine Bilirubin Negative (NEG) Urine Urobilinogen Dipstick 1.0 mg/dL (0.2 mg/dL) Urine Leukocyte Esterase Negative (NEG) Urine RBC 0 /HPF (0-2) Urine WBC 1-4 /HPF (0-4) Urine Squamous Epithelial Cells Few /LPF Urine Bacteria 0 /HPF (0-FEW) Urine Mucus Marked /LPF White Blood Count 4.1 x10^3/uL (4.0-11.0) Red Blood Count 5.27 x10^6/uL (4.30-5.70) Hemoglobin 15.7 g/dL (13.0-17.5) Hematocrit 46.3 % (39.0-53.0) Mean Corpuscular Volume 88 fL (79-100) Mean Corpuscular Hemoglobin 30 pg (25-35) Mean Corpuscular Hemoglobin Concent 34 g/dL (31-37) Red Cell Distribution Width 14.2 % (11.5-14.5) Platelet Count 143 x10^3/uL (140-400) Neutrophils (%) (Auto) 54 % (31-73) Lymphocytes (%) (Auto) 26 % (24-48) Monocytes (%) (Auto) 19 % (0-9) H Eosinophils (%) (Auto) 0 % (0-3) Basophils (%) (Auto) 1 % (0-3) Neutrophils # (Auto) 2.2 x10^3/uL (1.8-7.7) Lymphocytes # (Auto) 1.1 x10^3/uL (1.0-4.8) Monocytes # (Auto) 0.8 x10^3/uL (0.0-1.1) Eosinophils # (Auto) 0.0 x10^3/uL (0.0-0.7) Basophils # (Auto) 0.0 x10^3/uL (0.0-0.2) Platelet Estimate Pending Sodium Level 136 mmol/L (136-145) Potassium Level 3.9 mmol/L (3.5-5.1) Chloride Level 102 mmol/L (98-107) Carbon Dioxide Level 23 mmol/L (21-32) Anion Gap 11 (6-14) Blood Urea Nitrogen 18 mg/dL (8-26) Creatinine 1.0 mg/dL (0.7-1.3) Estimated GFR (Cockcroft-Gault) 74.5 BUN/Creatinine Ratio 18 (6-20) Glucose Level 101 mg/dL (70-99) H Calcium Level 9.5 mg/dL (8.5-10.1) Total Bilirubin 0.8 mg/dL (0.2-1.0) Aspartate Amino Transferase (AST) 28 U/L (15-37) Alanine Aminotransferase (ALT) 20 U/L (16-63) Alkaline Phosphatase 86 U/L (46-116) Total Protein 7.6 g/dL (6.4-8.2) Albumin 3.6 g/dL (3.4-5.0) Albumin/Globulin Ratio 0.9 (1.0-1.7) L Lipase 108 U/L (73-393) Laboratory Tests 03/25/19 09:04 Laboratory Tests 03/25/19 09:04 EKG EKG [] Radiology/Procedures Radiology/Procedures [] Impressions: FINDINGS: Lung bases are clear. Liver unremarkable. Spleen mildly enlarged, 14.5 cm. Pancreas unremarkable. No adrenal mass. Kidneys demonstrate symmetric enhancement, no evidence of hydronephrosis. Low-density lesion upper pole left kidney measures 4.1 cm and 15 Hounsfield units, likely a cyst. 3.6 cm lesion in the more inferior left kidney measures 16 Hounsfield units also compatible with a cyst. Other smaller renal lesion too small to characterize. No calcified gallstone. Aorta nonaneurysmal. No significant lymph node enlargement. Colonic diverticulosis. No evidence of acute colitis. No significant small bowel distention. No evidence of pneumoperitoneum. No significant ascites. Appendix is not clearly seen. No evidence of pneumoperitoneum. Bilateral hip replacements obscure pelvic structures including the urinary bladder and reproductive organs. Degenerative spondylosis. Vertebral body height and alignment are intact apart from minimal anterolisthesis of L5 on S1. Fat-containing anterior abdominal wall midline hernia. IMPRESSION: 1. Mild splenomegaly. 2. Bilateral renal lesions, most likely cysts. 3. Colonic diverticulosis without evidence of acute colitis. Electronically signed by: Hal Marcano MD (03/25/2019 10:25 AM) [facility] DICTATED and SIGNED BY: HAL MARCANO MD DATE: 03/25/19 1025 Course & Med Decision Making Course & Med Decision Making Pertinent Labs and Imaging studies reviewed. (See chart for details) []68-year-old male with the above past medical history prior colon resection with lower abdominal discomfort in the setting of no bowel movement for 3 days he is on chronic narcotics consider diverticulitis CT scan and white blood cell count and lab work are not consistent with that diagnosis he felt better after ER treatment. Likely constipation although given the lack of obvious objective diagnosis I did recommend close follow-up in 24-48 hours should his symptoms worsen or change or not get better as expected with the below treatment. Plan for MiraLAX and Zofran discussed with and patient were in agreement Bacilio Disclaimer Bacilio Disclaimer This electronic medical record was generated, in whole or in part, using a voice recognition dictation system. Departure Departure Impression: Primary Impression: Abdominal pain Disposition: HOME, SELF-CARE Condition: STABLE Patient Instructions: Abdominal Pain, Psqn-rd-Pwab Scripts Ondansetron (ONDANSETRON ODT) 4 Mg Tab.rapdis 1 TAB PO PRN Q6-8HRS PRN for NAUSEA/VOMITING, #16 TAB Prov: PIO GAN MD 03/25/19 Polyethylene Glycol 3350 (MIRALAX) 17 Gm Powd.pack 1 PACKET PO DAILY, #30 PACKET 0 Refills Prov: PIO GAN MD 03/25/19 PIO GAN MD Mar 25, 2019 10:46
[2019-03-25 11:00] VITALS: BP 109/71
[2019-03-25 13:25] LABS: % ATYL 5 % (0-0); % BANDS 8 % (0-9); % LYMPHS 24 % (24-48); % MONOS 17 % (0-10); % SEGS 46 % (35-66); PLT ESTIMATE ADEQUATE (ADEQUATE)
== END 2019-03-25 11:19 | disposition home or self-care (01) ==
LOC: ER 08:46
DX: R10.32 Left lower quadrant pain (principal); R11.0 Nausea; G89.29 Other chronic pain; M25.569 Pain in unspecified knee; Z90.89 Acquired absence of other organs; K21.9 Gastro-esophageal reflux disease without esophagitis; J45.909 Unspecified asthma, uncomplicated; Z88.0 Allergy status to penicillin; Z88.2 Allergy status to sulfonamides; Z88.7 Allergy status to serum and vaccine
CPT/HCPCS: 36415; 74177; 80053; 81001; 83690; 85007; 85025; 96374; 96375; 99285; J2405; J3010; J7030; Q9967

== ENCOUNTER → 2019-04-01 | Outpatient (CLI) | payer MEDICARE ==
[2019-03-25 11:00] VITALS: BP 109/71
[~2019-04-01] MED LIST changes: +IOHEXOL 180 MG/ML 10 ML VIAL. ONE; +ONDA4TAB12 PO; +POLY17PO29 PO; +methylPREDNISolone ACETATE 40 MG/ML VIAL. ONE; +methylPREDNISolone ACETATE 80 MG/ML VIAL. ONE
--- NOTE | 2019-04-01 12:19 | PAIN ---
DATE OF SERVICE: 04/01/2019 PROGRESS NOTE FOR PAIN CLINIC DIAGNOSES: Lumbar radiculopathy with lumbar degenerative disk disease. HISTORY OF PRESENT ILLNESS: The patient is a 68-year-old male, who returns for followup status post medication management as well as lumbar epidural steroid injection. The patient did very well with about 75% improvement overall after the last injection. The patient reports the pain is returning now in the low back as it has been previously and into the bilateral lower extremities, somewhat more on the right than the left at this time, but present bilaterally, posterior gluteus, posterior thigh, posterior calf, radiating. The patient reports the pain is a 9 on a scale of 10 at its worst in the past week, 7 on average, 5 at its least and is a 7 today. The patient reports it is tingling, burning, cramping, sharp, dull, tight and across the low back and radiating into the legs. The patient reports no new motor or sensory deficits, no new bowel or bladder incontinence. The patient reports it is better with sitting or lying down, but it has been awaken him from sleep about every 6 hours. Recently, this has been doing better with distance walking, doing work activities, household activities with greater ease and comfort, but again the pain is returning as it has in the past. The patient is still doing well with his medication of oxycodone, reports no side effects as well. PHYSICAL EXAMINATION: VITAL SIGNS: The patient's blood pressure is 123/76, pulse 99, respirations 18, temperature 98.2 degrees Fahrenheit. Height is 6 feet and weight is 255 pounds. GENERAL: The patient is awake, alert, oriented, appropriate, very pleasant demeanor. HEENT: Head shows normocephalic, atraumatic. Extraocular movements are intact and symmetrical. Oral cavity: Mucous membranes moist and pink. Dentition intact. NECK: Shows anterior throat supple without palpable lymphadenopathy noted. Swallow reflex symmetrical. CHEST: Shows normal on inspection. Breath sounds clear to auscultation bilaterally. HEART: Shows S1, S2 clear. No murmurs auscultated. ABDOMEN: Soft, nontender, nondistended. No palpable organomegaly is noted. No rebound or guarding demonstrated. BACK: Shows spine grossly in the midline. Normal appearing thoracic kyphosis and minor flattening of lumbar lordotic curvature. Lumbar paraspinous muscle shows symmetrical on inspection, on palpation shows some moderate tenderness diffusely bilaterally, but only diffusely without significant radiation. The patient has good rotational motion of lumbar spine, both laterally as well as extension and flexion without significant difficulty. EXTREMITIES: The patient's lower extremities show deep tendon reflexes at 1+ in the patella and tendo calcaneus tendons. Motor exam is strong with 5/5 dorsiflexion, extension, quadriceps and hamstring flexion and symmetrical. The patient's peripheral pulses are 1+ posterior tibia. No peripheral edema is noted bilaterally. Options were discussed with the patient. The patient's old chart was reviewed as his current medication regimen updated. Current review of systems updated today as well. We will proceed with a lumbar epidural steroid injection today with fluoroscopic guidance. Risks were again discussed including, but not limited to bleeding, infection, possibility of epidural hematoma, subsequent neurological compromise, dural puncture, headaches, spinal cord and/or nerve damage, side effects of steroid medication and poor results regarding pain control. The patient understands and wished to proceed. The patient will return to clinic in approximately 2 weeks for followup. He was counseled on return appointment, activity level and side effects to be aware of. DIAGNOSIS: Lumbar radiculopathy with lumbar degenerative disk disease. PROCEDURE: Lumbar epidural steroid injection, translaminar approach at L5-S1 level using C-arm fluoroscopic guidance under sterile prep and drape using local anesthetic. MEDICATION INJECTED: The patient received a total of 120 mg of Depo-Medrol plus 10 mL of preservative-free normal saline and 2 mL of contrast. CONDITION AT DISCHARGE: Stable. The patient tolerated the procedure well, had no complications. JUAN TAYLOR MD DR: SHIKHA/akash JOB#: [id number] / [id number]
== END ==
LOC: PNCL 08:12
PROVIDERS: ATTEND Anesthesiology
DX: M51.16 Intervertebral disc disorders with radiculopathy, lumbar region (principal); M54.5 Low back pain
CPT/HCPCS: 62323; J1030; J1040; Q9965

== ENCOUNTER → 2019-05-22 | Outpatient (CLI) | payer MEDICARE ==
[~2019-05-22] MED LIST changes: -IOHEXOL 180 MG/ML 10 ML VIAL. ONE; -methylPREDNISolone ACETATE 40 MG/ML VIAL. ONE; -methylPREDNISolone ACETATE 80 MG/ML VIAL. ONE
--- NOTE | 2019-05-22 09:36 | CARD ---
MR#: [id number] Date of Study: 05/22/2019 Ordering Physician: MELQUIADES FORD, Referring Physician: MELQUIADES FORD, Rachelle: Gavi Love APPROVED REPORT EXAM: Two-dimensional and M-mode echocardiogram with Doppler and color Doppler. Other Information Quality : AverageHR: 71bpm INDICATION Dyspnea 2D DIMENSIONS RVDd2.4 (2.9-3.5cm)Left Atrium(2D)3.1 (1.6-4.0cm) IVSd1.2 (0.7-1.1cm)Aortic Root(2D)2.7 (2.0-3.7cm) LVDd3.9 (3.9-5.9cm)LVOT Diameter1.9 (1.8-2.4cm) PWd0.8 (0.7-1.1cm)LVDs2.6 (2.5-4.0cm) FS (%) 33.5 %SV41.4 ml Aortic Valve AoV Peak Slava.124.1cm/sAoV VTI28.0cm AO Peak GR.6.2mmHgLVOT Peak Slava.91.1cm/s LVOT VTI 21.20cmAO Mean GR.4mmHg YG (VMAX)1.70rx0ILH (VTI)2.16cm2 Mitral Valve MV E Kjwbfjsw57.9cm/sMV DECEL [id number] MV A Nliekaua53.8cm/sMV [id number] E/A Ratio1.2MVA (PHT)3.96cm2 TDI E/Lateral E'10.1E/Medial E'12.4 Pulmonary Valve PV Peak Pibsqdzb981.2cm/sPV Peak Grad.5mmHg Tricuspid Valve RAP [id number] Pulmonary Vein S1 Qwvbrtxr04.1cm/sD2 Tnpfjexz71.4cm/s PVa [id number] LEFT VENTRICLE The left ventricle is normal size. There is borderline septal left ventricular hypertrophy. The left ventricular systolic function is normal and the ejection fraction is within normal range. The Ejectio n Fraction is 55-60%. There is normal LV segmental wall motion. Transmitral Doppler flow pattern is G rade I-abnormal relaxation pattern. RIGHT VENTRICLE The right ventricle cavity is small. There is normal right ventricular wall thickness. The right vent ricular systolic function is normal. ATRIA The left atrium size is normal. The right atrium size is normal. The interatrial septum is intact wit h no evidence for an atrial septal defect or patent foramen ovale as noted on 2-D or Doppler imaging. AORTIC VALVE The aortic valve is thickened but opens well. Doppler and Color Flow revealed no significant aortic r egurgitation. There is no significant aortic valvular stenosis. MITRAL VALVE The mitral valve is thickened but opens well. There is no evidence of mitral valve prolapse. There is no mitral valve stenosis. Doppler and Color-flow revealed trace to mild mitral regurgitation. TRICUSPID VALVE The tricuspid valve is normal in structure and function. Doppler and Color Flow revealed trace tricus pid regurgitation. There is no tricuspid valve stenosis. PULMONIC VALVE The pulmonic valve is not well visualized. Doppler and Color Flow revealed no pulmonic valvular regur gitation. GREAT VESSELS The aortic root is normal in size. The ascending aorta is normal in size. The IVC is normal in size a nd collapses >50% with inspiration. PERICARDIAL EFFUSION There is no pleural effusion. There is no evidence of significant pericardial effusion. Critical Notification Critical Value: No <Conclusion> The left ventricle is normal size. The left ventricular systolic function is normal and the ejection fraction is within normal range. The Ejection Fraction is 55-60%. There is borderline septal left ventricular hypertrophy. There is no significant aortic valvular stenosis. Doppler and Color Flow revealed no significant aortic regurgitation. Doppler and Color-flow revealed trace to mild mitral regurgitation. Doppler and Color Flow revealed trace tricuspid regurgitation. Signed by : Melquiades Ford MD Electronically Approved : 05/22/2019 09:36:32
== END | disposition home or self-care (01) ==
LOC: ECHO 07:32
PROVIDERS: ATTEND Internal Medicine Cardiovascular Disease
DX: I34.0 Nonrheumatic mitral (valve) insufficiency (principal); I51.7 Cardiomegaly
CPT/HCPCS: 93306

== ENCOUNTER → 2019-06-05 | Outpatient (CLI) | payer MEDICARE ==
[~2019-06-05] MED LIST changes: +IOHEXOL 180 MG/ML 10 ML VIAL. ONE; +methylPREDNISolone ACETATE 40 MG/ML VIAL. ONE; +methylPREDNISolone ACETATE 80 MG/ML VIAL. ONE
--- NOTE | 2019-06-05 11:32 | PAIN ---
DATE OF SERVICE: 06/05/2019 PROGRESS NOTE FOR PAIN CLINIC DIAGNOSES: Lumbar radiculopathy with lumbar degenerative disk disease. HISTORY OF PRESENT ILLNESS: The patient is a 69-year-old male who returns for followup status post lumbar epidural steroid injection x 1 in the series on 04/01/2019. The patient did very well overall about 30% improvement. The patient reports he was very active right after the injection and feels that it does not let the medicine set in and do its best, but he reports still significant decrease in pain. Pain is returning now over the past week or so in the low back, bilateral lower extremities, posterior gluteus, posterior thighs, posterior calves bilaterally, worse with walking, standing, changing positions, better with sitting or lying down, generally does not awaken him from sleep at night, but does occasionally over the past week or so about every 6 hours. The patient reports he was doing a lot of yard work, raking leaves, doing a lot of household activities with greater ease and comfort after her last visit. Pain is returning now, it is aching, sharp, dull, tight, shooting in the low back, tingling and burning in the back itself and radiating pain in the legs. The patient reports it is a 10 on a scale of 10 at its worst in the past week, 8 on average, 5 at its least and is an 8 today. The patient reports no new motor or sensory deficits, no new bowel or bladder incontinence or other complaints. PHYSICAL EXAMINATION: VITAL SIGNS: The patient's blood pressure is 135/95, pulse 85, respirations 16, temperature 97.9 degrees Fahrenheit, height 6 feet, weight is 263 pounds. GENERAL: The patient is awake, alert, oriented, appropriate, very pleasant demeanor. HEENT: Shows normocephalic, atraumatic. Extraocular movements are intact and symmetrical. Oral cavity: Mucous pink. Dentition is intact. NECK: Shows anterior throat supple without palpable lymphadenopathy noted. Swallow reflex symmetrical. CHEST: Shows normal on inspection. Breath sounds clear bilaterally. HEART: Shows S1, S2 clear. No murmurs auscultated. ABDOMEN: Soft, nontender, nondistended. No palpable organomegaly is noted. No rebound or guarding demonstrated. BACK: Shows spine grossly in the midline. Normal appearing thoracic kyphosis, some minor flattening of lumbar lordotic curvature. Lumbar paraspinous muscle shows symmetrical on inspection, with palpation shows some moderate tenderness diffusely, but only diffusely without significant radiation. EXTREMITIES: The patient's lower extremities show deep tendon reflexes at 1+ patellar and tendo calcaneus tendons. Motor exam is strong with 5/5 dorsiflexion, extension, quadriceps and hamstring flexion. Peripheral pulses are 1+ posterior tibia. No peripheral edema is noted bilaterally. The patient's old chart was reviewed as his current medication regimen updated. Current review of systems updated today as well. We will proceed with a second in the series of lumbar epidural steroid injection today with fluoroscopic guidance. Risks were again discussed including, but not limited to bleeding, infection, possibility of epidural hematoma, subsequent neurological compromise, dural puncture, headaches, spinal cord and/or nerve damage, side effects of steroid medication and poor results regarding pain control. The patient understands and wished to proceed. The patient will return to clinic in approximately 2 weeks for followup. She was counseled on return appointment, activity level and side effects to be aware of. DIAGNOSIS: Lumbar radiculopathy with lumbar degenerative disk disease. PROCEDURE: Lumbar epidural steroid injection, translaminar approach at the L5-S1 level using C-arm fluoroscopic guidance under sterile prep and drape using local anesthetic. MEDICATION INJECTED: A total of 120 mg Depo-Medrol plus 10 mL of preservative-free normal saline and 2 mL of contrast. CONDITION AT DISCHARGE: Stable. The patient tolerated the procedure well, had no complications. JUAN TAYLOR MD DR: SHIKHA/akash JOB#: [id number] / [id number]
== END ==
LOC: PNCL 07:37
PROVIDERS: ATTEND Anesthesiology
DX: M51.16 Intervertebral disc disorders with radiculopathy, lumbar region (principal)
CPT/HCPCS: 62323; J1030; J1040; Q9965

== ENCOUNTER → 2019-07-31 | Outpatient (CLI) | payer MEDICARE ==
[~2019-07-31] MED LIST changes: -OMEP20CA10 PO; +OMEP20CA16 PO
--- NOTE | 2019-07-31 12:13 | PAIN ---
DATE OF SERVICE: 07/31/2019 PROGRESS NOTE FOR PAIN CLINIC DIAGNOSES: Lumbar radiculopathy with lumbar degenerative disk disease. HISTORY OF PRESENT ILLNESS: The patient is a 69-year-old male who returns for followup status post lumbar epidural steroid injection x 2, last seen 06/05/2019. The patient did very well with about 50% improvement overall for the first 5-6 weeks. The patient reports the pain returned in the low back, bilateral lower extremities, radiating the posterior gluteus, posterior thighs, posterior calves, worse with walking, standing, change in positions, initially was doing much better with walking, doing work activities, household activities, traveling with greater ease and comfort, sleeping well at night and continues to sleep well. The patient reports it is much better with pain reduced with sitting or lying down. The patient reports it is a 10 on a scale of 10 at its worst in the past week, 8 on average, 4 at its least and is an 8 today. The patient reports it is aching, sharp, dull, tight, shooting, cramping, burning, stabbing, radiating in the legs, becoming more constant. The patient is also taking oxycodone with good results and no specific side effects. PHYSICAL EXAMINATION: VITAL SIGNS: The patient's blood pressure 118/70, pulse 103, respirations 16, temperature 97.7 degrees Fahrenheit, height 6 feet, weight is 260 pounds. GENERAL: The patient is awake, alert, oriented, appropriate, very pleasant demeanor. HEENT: Shows normocephalic, atraumatic. Extraocular movements are intact and symmetrical. Oral cavity: Mucous membranes moist and pink. Dentition is intact. NECK: Shows anterior throat supple without palpable lymphadenopathy noted. Swallow reflex symmetrical. CHEST: Shows normal on inspection. Breath sounds clear bilaterally. HEART: Shows S1, S2 clear. No murmurs auscultated. ABDOMEN: Obese but soft, nontender, nondistended. BACK: Shows spine grossly in the midline. Normal-appearing thoracic kyphosis and lumbar lordotic curvature. Lumbar paraspinous muscle shows symmetrical on inspection, with palpation shows some moderate tenderness diffusely bilaterally in the middle and lower distribution of paraspinous muscles, right equal to left. No trigger points. No radiation of pain. The patient has good rotational motion both laterally as well as extension and flexion without significant difficulty. EXTREMITIES: Lower extremities show deep tendon reflexes at 1+ in the patellar and tendo calcaneus tendons. Motor exam is strong with 5/5 dorsiflexion and extension equal. Peripheral pulses are 1+ posterior tibia. No peripheral edema bilaterally. Options were discussed with the patient. The patient's old chart was reviewed as his current medication regimen updated. Current review of systems updated today as well. We will proceed with a third in the series of lumbar epidural steroid injection today with fluoroscopic guidance. Risks were again discussed including, but not limited to bleeding, infection, possibility of epidural hematoma, subsequent neurological compromise, dural puncture, headaches, spinal cord and/or nerve damage, side effects of steroid medication and poor results regarding pain control. The patient understands and wished to proceed. The patient will return to the clinic in approximately 2 weeks for followup. He was counseled as to return appointment, activity level and side effects to be aware of. DIAGNOSES: Lumbar radiculopathy with lumbar degenerative disk disease. PROCEDURE: Lumbar epidural steroid injection, translaminar approach L5-S1 level using C-arm fluoroscopic guidance under sterile prep and drape using local anesthetic. MEDICATION INJECTED: A total of 120 mg Depo-Medrol plus 10 mL of preservative-free normal saline and 2 mL of contrast. CONDITION AT DISCHARGE: Stable. The patient tolerated the procedure well, had no complications. JUAN TAYLOR MD DR: SHIKHA/akash JOB#: [id number] / [id number]
== END ==
LOC: PNCL 07:40
PROVIDERS: ATTEND Anesthesiology
DX: M51.16 Intervertebral disc disorders with radiculopathy, lumbar region (principal)
CPT/HCPCS: 62323; J1030; J1040; Q9965

== ENCOUNTER → 2019-09-25 | Outpatient (CLI) | payer MEDICARE ==
[~2019-09-25] MED LIST changes: -IOHEXOL 180 MG/ML 10 ML VIAL. ONE; -methylPREDNISolone ACETATE 40 MG/ML VIAL. ONE; -methylPREDNISolone ACETATE 80 MG/ML VIAL. ONE
--- NOTE | 2019-09-25 10:32 | PAIN ---
DATE OF SERVICE: 09/25/2019 PROGRESS NOTE FOR PAIN CLINIC DIAGNOSES: Lumbar radiculopathy with lumbar degenerative disk disease. HISTORY OF PRESENT ILLNESS: The patient is a 69-year-old male, who returns for followup, status post lumbar epidural steroid injection x 3, most recently on 07/31/2019. The patient reports he did very well with about 56% improvement in the low back, bilateral lower extremity pain. The patient reports pain is returning, at worst is a 10 on a scale of 10 in the past week, 8 on average, 4 at its least and is a 4 today. The patient reports it is tingling, burning, aching, sharp, dull in the back, some radiating pain in the bilateral posterior gluteus, posterior thighs, posterior calves, right essentially equal to left. The patient reports no new motor or sensory deficits, no new bowel or bladder incontinence or other complaints. The patient reports he had fallen on the ice back in July, which exacerbates his pain, before that he was doing quite a bit better. The patient is still taking oxycodone with good results and without significant side effects with the medication and has been on very stable regimen of this as well. The patient reports no new motor or sensory deficits, no new bowel or bladder incontinence. PHYSICAL EXAMINATION: VITAL SIGNS: The patient's blood pressure is 131/58, pulse 75, respirations 16, temperature 97.9 degrees Fahrenheit, height is 6 feet, weight is 271 pounds. GENERAL: The patient is awake, alert, oriented, appropriate, very pleasant demeanor. HEENT: Shows normocephalic, atraumatic. Extraocular movements are intact and symmetrical. Oral cavity: Mucous membranes moist and pink. Dentition is intact. NECK: Shows anterior throat supple without palpable lymphadenopathy noted. Swallow reflex symmetrical. CHEST: Shows normal on inspection. Breath sounds are clear bilaterally. HEART: Shows S1, S2 clear. ABDOMEN: Soft, nontender, nondistended. BACK: Shows spine grossly in midline. Lumbar paraspinous muscle shows symmetrical on inspection, on palpation shows some moderate tenderness diffusely bilaterally but only diffusely without significant radiation. The patient has good rotational motion of lumbar spine, both laterally as well as extension and flexion without significant increase in pain. EXTREMITIES: The patient's lower extremities show deep tendon reflexes at 1+ in the patellar and tendo calcaneus tendons. Motor exam is strong with 5/5 dorsiflexion and extension. Options were discussed with the patient. The patient's old chart was reviewed as his current medication regimen updated. Current review of systems updated today as well. We will refill the patient's oxycodone 10 mg. The patient has had appropriate [facility] reporting as well as appropriate urinalysis to date. We will make a 2-month prescription refill. The patient was given instruction as well as side effects to be aware of with medication. The patient will follow up in approximately 1 week for a lumbar epidural steroid injection. This will be a 6-month reset for injections. The patient will follow up in 1 week. We will plan on lumbar epidural steroid injection at that time. JUAN TAYLOR MD DR: SHIKHA/akash JOB#: [id number] / [id number]
== END | disposition home or self-care (01) ==
LOC: PNCL 08:01
PROVIDERS: ATTEND Anesthesiology
DX: M51.16 Intervertebral disc disorders with radiculopathy, lumbar region (principal)
CPT/HCPCS: G0463

== ENCOUNTER → 2019-10-02 | Outpatient (CLI) | payer MEDICARE ==
[~2019-10-02] MED LIST changes: +IOHEXOL 240 MG/ML 50ML VIAL. ONE; +methylPREDNISolone ACETATE 40 MG/ML VIAL. ONE; +methylPREDNISolone ACETATE 80 MG/ML VIAL. ONE
--- NOTE | 2019-10-02 09:22 | PAIN ---
DATE OF SERVICE: 10/02/2019 PROGRESS NOTE FOR PAIN CLINIC DIAGNOSIS: Lumbar radiculopathy with lumbar degenerative disk disease. HISTORY OF PRESENT ILLNESS: The patient is a 69-year-old male who returns for followup status post lumbar epidural steroid injection x 3, most recently 07/31/2019. The patient did very well with about 50% improvement of his low back and bilateral lower extremity pain. The patient reports he had a slip on some ice and shortly after that has had pain return in the low back and bilateral lower extremities, radiating to posterior gluteus, posterior thighs, posterior calves, slightly worse on the left than the right, but present bilaterally. The patient reports it is aching, sharp, dull, tight, shooting, tingling, burning, cramping, stabbing, radiating, becoming more constant, more severe with walking, standing, much better after the last injection; however, for about 4 weeks and until he fell. The patient reports he is doing better with sitting or lying down, does not awaken him from sleep at night. The patient reports pain is 10 on a scale of 10 at its worse, the past week, 9 on average, 5 at its least and is a 5 today. The patient reports no new motor or sensory deficits, no new bowel or bladder incontinence or other complaints. PHYSICAL EXAMINATION: VITAL SIGNS: The patient's blood pressure is 105/72, pulse 72, respirations 18, temperature 98.1 degrees Fahrenheit, height is 6 feet, weight is 276 pounds. GENERAL: The patient is awake, alert, oriented, appropriate, very pleasant demeanor. HEENT: Shows normocephalic, atraumatic. Extraocular movements are intact and symmetrical. Oral cavity: Mucous membranes moist and pink. Dentition is intact. NECK: Shows anterior throat supple without palpable lymphadenopathy noted. CHEST: Shows normal on inspection. Breath sounds are clear bilaterally. HEART: Shows S1, S2 clear. No murmurs auscultated. ABDOMEN: Soft, nontender, nondistended. No palpable organomegaly is noted. No rebound or guarding demonstrated. BACK: Shows spine grossly in the midline. Normal appearing thoracic kyphosis and minor flattening of lumbar lordotic curvature. Lumbar paraspinous muscle shows symmetrical on inspection, with palpation shows some moderate tenderness diffusely, but only diffusely bilaterally without significant radiation. The patient has good rotational motion of lumbar spine, both laterally as well as extension and flexion. EXTREMITIES: Lower extremities show deep tendon reflexes 1+ in the patellar and tendo calcaneus tendons. Motor exam is strong with 5/5 dorsiflexion, extension, quadriceps and hamstring flexion. Peripheral pulses are 1+. No peripheral edema bilaterally. Options were discussed with the patient. The patient's old chart was reviewed as his current medication regimen updated. Current review of systems updated today as well. We will proceed with a lumbar epidural steroid injection, the first in this series today with fluoroscopic guidance. Risks were again discussed including, but not limited to bleeding, infection, possibility of epidural hematoma, subsequent neurological compromise, dural puncture, headaches, spinal cord and/or nerve damage, side effects of steroid medication and poor results regarding pain control. The patient understands and wished to proceed. The patient will return to clinic in approximately 2 weeks for followup. He was counseled as to return appointment, activity level and side effects to be aware of. DIAGNOSIS: Lumbar radiculopathy with lumbar degenerative disk disease. PROCEDURE: Lumbar epidural steroid injection, translaminar approach L5-S1 level using C-arm fluoroscopic guidance under sterile prep and drape using local anesthetic. MEDICATION INJECTED: A total of 120 mg Depo-Medrol plus 10 mL of preservative-free normal saline and 2 mL of contrast. CONDITION AT DISCHARGE: Stable. The patient tolerated the procedure well, had no complications. JUAN TAYLOR MD DR: SHIKHA/akash JOB#: [id number] / [id number]
== END ==
LOC: PNCL 08:10
PROVIDERS: ATTEND Anesthesiology
DX: M51.16 Intervertebral disc disorders with radiculopathy, lumbar region (principal)
CPT/HCPCS: 62323; J1030; J1040; Q9966

== ENCOUNTER → 2019-12-02 | Outpatient (CLI) | payer MEDICARE ==
[~2019-12-02] MED LIST changes: +IOHEXOL 180 MG/ML 10 ML VIAL. ONE; -IOHEXOL 240 MG/ML 50ML VIAL. ONE
--- NOTE | 2019-12-02 11:24 | PAIN ---
DATE OF SERVICE: 12/02/2019 PROGRESS NOTE FOR PAIN CLINIC DIAGNOSIS: Lumbar radiculopathy with lumbar degenerative disk disease. HISTORY OF PRESENT ILLNESS: The patient is a 69-year-old male who returns for followup status post lumbar epidural steroid injection x 1 on 09/24. The patient did very well with about 75% improvement for the first 5 weeks or so. The patient reports pain is significantly reduced. He was increasing his activity at home as well as at work, doing walking greater distances, sleeping much better. The patient reports the pain is beginning to return now in the bilateral lower extremities as well as in the low back and hips, radiating to posterior gluteus, posterior thighs, posterior calves. The patient reports it is aching, dull, sharp at times, tight and shooting in the legs, tingling and burning in the back and legs as well as radiating and aching. The patient reports it is on and off in intensity, worse with walking, standing, better with sitting or lying down, generally does not awake him from sleep at night. The patient reports his worst pain is a 10 on a scale of 10 in the past week, 7 on average, 5 at its least and is a 5 today. The patient reports no new motor or sensory deficits, no new bowel or bladder incontinence or other complaints. PHYSICAL EXAMINATION: VITAL SIGNS: The patient's blood pressure 145/76, pulse 67, respirations 16, temperature is 98.1 degrees Fahrenheit, height 6 feet and weight is 274 pounds. GENERAL: The patient is awake, alert, oriented, appropriate, very pleasant demeanor. HEENT: Shows normocephalic, atraumatic. Extraocular movements are intact and symmetrical. Oral cavity shows mucous membranes moist and pink. Dentition is intact. NECK: Shows anterior throat supple without palpable lymphadenopathy noted. Swallow reflex is symmetrical. CHEST: Shows normal on inspection. Breath sounds are clear to auscultation bilaterally. No rales, rhonchi or wheezes auscultated. HEART: Shows S1, S2 clear. No murmurs auscultated. ABDOMEN: Soft, nontender, nondistended. No palpable organomegaly is noted. No rebound or guarding demonstrated. BACK: Shows spine grossly in the midline. Normal appearing thoracic kyphosis and lumbar lordotic curvature is slightly flattened. Lumbar paraspinous muscle shows symmetrical on inspection, on palpation shows some moderate tenderness diffusely bilaterally, going diffusely without significant radiation. The patient has good rotational motion of lumbar spine, both laterally as well as extension and flexion without significant increase in pain. EXTREMITIES: Lower extremities show deep tendon reflexes at 1+ in the patellar and tendo calcaneus tendons. Motor exam is strong with 5/5 dorsiflexion, extension, quadriceps and hamstring flexion equal. Peripheral pulses are 1+. No peripheral edema is noted bilaterally. Options were discussed with the patient. The patient's old chart was reviewed as his current medication regimen updated. Current review of systems updated today as well. We will proceed with a second in a series of lumbar epidural steroid injection today with fluoroscopic guidance. Risks were again discussed including, but not limited to bleeding, infection, possibility of epidural hematoma, subsequent neurological compromise, dural puncture, headaches, spinal cord and/or nerve damage, side effects of steroid medication and poor results regarding pain control. The patient understands and wished to proceed. The patient will return to clinic in approximately 2 weeks for followup. He was counseled on return appointment, activity level and side effects to be aware of. DIAGNOSIS: Lumbar radiculopathy with lumbar degenerative disk disease. PROCEDURE: Lumbar epidural steroid injection, translaminar approach at L5-S1 level using C-arm fluoroscopic guidance under sterile prep and drape using local anesthetic. MEDICATION INJECTED: A total of 120 mg of Depo-Medrol plus 10 mL of preservative-free normal saline and 2 mL of contrast. CONDITION AT DISCHARGE: Stable. The patient tolerated the procedure well, had no complications. JUAN TAYLOR MD DR: SHIKHA/akash JOB#: [id number] / [id number]
== END ==
LOC: PNCL 08:07
PROVIDERS: ATTEND Anesthesiology
DX: M51.16 Intervertebral disc disorders with radiculopathy, lumbar region (principal)
CPT/HCPCS: 62323; J1030; J1040; Q9965

== ENCOUNTER → 2020-02-13 | Outpatient (CLI) | payer MEDICARE ==
--- NOTE | 2020-02-13 08:58 | PAIN ---
DATE OF SERVICE: 02/13/2020 PROGRESS NOTE FOR PAIN CLINIC DIAGNOSES: Lumbar radiculopathy with lumbar degenerative disk disease. HISTORY OF PRESENT ILLNESS: The patient is a 69-year-old male who returns for followup status post lumbar epidural steroid injection x 2, most recently on 12/02/2019. The patient reports he did very well. The patient was also taking oxycodone as chronic medication management. The patient is doing well with this without side effects. The patient reports no new motor or sensory deficits, still significant pain in bilateral lower extremities, posterior gluteus, posterior thighs and across the low back, worse with walking, standing, and changing positions. 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 His pain is controlled fairly well with about a 50% improvement overall. The patient reports no side effects with medications. Occasional constipation, but only occasional and is relieved with increased hydration and [id number] laxatives. The patient reports the pain is a 10 on a scale of 10 at its worse over the past week, 8 on average, 5 at its least and is an 8 today. The patient reports it is aching, sharp, tight, shooting across the low back and burning and stabbing into the legs with radiating pain in the lower extremities, posterior gluteus, posterior thighs and calves, essentially right equal to left. The patient reports no new motor or sensory deficits, better with sitting or lying down, does awaken him from sleep about once a night, most nights. PHYSICAL EXAMINATION: VITAL SIGNS: The patient's blood pressure 137/91, pulse 74, respirations 16, temperature 98.0 degrees Fahrenheit, height 6 feet 2 inch, and weight is 282 pounds. GENERAL: The patient is awake, alert, oriented, appropriate, very pleasant demeanor. HEENT: Shows normocephalic, atraumatic. Extraocular movements are intact and symmetrical. Oral cavity: Mucous membranes moist and pink. Dentition is intact. NECK: Shows anterior throat supple without palpable lymphadenopathy noted. Swallow reflex symmetrical. CHEST: Shows normal on inspection. Breath sounds are clear bilaterally. HEART: Shows S1, S2 clear. ABDOMEN: Obese, soft, nontender, and nondistended. No palpable organomegaly is noted. BACK: Shows spine grossly in the midline. Slight exaggeration of thoracic kyphosis and minor flattening of lumbar lordotic curvature. Lumbar paraspinous muscle shows symmetrical on inspection, with palpation shows some moderate tenderness in the upper, middle and lower distribution of paraspinous muscles bilaterally, but only diffusely without trigger points, without radiation. The patient has good rotational motion of lumbar spine laterally greater than 10 degrees right and left as well as extension greater than 10 degrees, forward flexion 45 degrees without significant pain reported. EXTREMITIES: Lower extremities show deep tendon reflexes at 1+ in the patellar and tendo calcaneus tendons. Motor exam is strong with 5/5 dorsiflexion, extension, quadriceps and hamstring flexion symmetrical. Peripheral pulses are 1+ posterior tibia. No peripheral edema is noted bilaterally. Options were discussed with the patient. The patient's old chart was reviewed as his current medication regimen updated. Current review of systems updated today as well. We will proceed with a lumbar epidural steroid injection today with fluoroscopic guidance. Risks were again discussed including, but not limited to bleeding, infection, possibility of epidural hematoma, subsequent neurological compromise, dural puncture, headaches, spinal cord and/or nerve damage, side effects of steroid medication and poor results regarding pain control. The patient understands and wished to proceed. The patient will return to clinic in approximately 2 weeks for followup, was counseled on return appointment, activity level and side effects to be aware of. DIAGNOSIS: Lumbar radiculopathy with lumbar degenerative disk disease. PROCEDURE: Lumbar epidural steroid injection, translaminar approach at the L5-S1 level using C-arm fluoroscopic guidance under sterile prep and drape using local anesthetic. MEDICATION INJECTED: A total of 120 mg Depo-Medrol plus 10 mL of preservative-free normal saline and 2 mL of contrast. CONDITION AT DISCHARGE: Stable. The patient tolerated the procedure well, had no complications. JUAN TAYLOR MD DR: SHIKHA/akash JOB#: [id number] / [id number]
== END ==
LOC: PNCL 08:09
PROVIDERS: ATTEND Anesthesiology
DX: M51.16 Intervertebral disc disorders with radiculopathy, lumbar region (principal)
CPT/HCPCS: 62323; J1030; J1040; Q9965

== ENCOUNTER → 2020-04-14 | Outpatient (CLI) | payer MEDICARE ==
--- NOTE | 2020-04-14 08:56 | PDOC ---
Progress Note - Pain Clinic Date of Service: DOS: DATE: 04/14/20 TIME: 08:53 Diagnosis: Dx: Lumbar radiculopathy with lumbar degenerative disc disease History or Present Illness: HPI: 69-year-old male returns follow-up status post lumbar epidural straight injections x3 last seen February 13, 2020. 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 Patient reports otherwise doing fairly well pain is returning however in the low back and radiates bilateral lower extremities posterior gluteus posterior thighs posterior calf slightly worse on the right patient which is a 10 on scale 10 is worse of the past week 7 on average 6 at its least and is a 6 today patient ports aching sharp dull tight shooting at times burning in the leg and cramping with stabbing pain in the low back worse with activity standing walking changing positions some radiating pain to lower extremities as well patient reports is better with sitting or laying down generally from sleep at night patient reports no new motor or sensory deficits no new bowel or bladder incontinence or other complaints. Physical Exam: VS: Blood pressure 150/89 pulse 73 respirations are 16 temperature is 98.0 F height is 6 foot weight which is 270 pounds PE: PHYSICAL EXAMINATION: GENERAL: The patient is awake, alert, oriented, appropriate, very pleasant demeanor HEENT: Shows normocephalic, atraumatic. Extraocular movements are intact and symmetrical. Oral cavity: Mucous membranes moist and pink. NECK: Shows anterior throat supple without palpable lymphadenopathy noted. Swallow reflex symmetrical. CHEST: Shows normal on inspection. Breath sounds are clear bilaterally, no rales rhonchi wheezes auscultated. HEART: Shows S1, S2 clear. No murmurs auscultated. ABDOMEN: Soft, nontender, nondistended, obese. No palpable organomegaly is noted. No rebound or guarding demonstrated. BACK: Shows spine grossly in the midline. Normal-appearing cervical lordotic curvature. There is slightly increased thoracic kyphosis, some minor flattening of the lumbar lordotic curvature. Lumbar paraspinous muscles show symmetrical on inspection, on palpation shows some moderate tenderness diffusely throughout the upper, middle and lower distribution of the paraspinous muscles, but without specific trigger points, without radiation of pain. The patient has good rotational motion of the lumbar spine, both laterally as well as extension and flexion without significant difficulty. No tenderness over the spinous processes, sacrum or sacroiliac regions. EXTREMITIES: Lower extremities show deep tendon reflexes 1+ in the patellar and tendo calcaneus tendons. Motor exam is 5 on a scale of 5 with right dorsiflexion, extension, quadriceps and hamstring flexion and 5/5 on the left. Peripheral pulses are 1+ posterior tibial. No peripheral edema is noted bilaterally. Lower extremities are warm and dry to touch, equal in color and appearance. SKIN: Shows warm and dry, good turgor. No edema. No sores, rashes or bruising throughout. Procedure: Procedure: Options were discussed with patient. Patient will chart was uses current medication regimen updated current review of systems updated today as well. We will proceed with a first in the series lumbar epidurals or injection today with fluoroscopic guidance. Risks were discussed including but not limited to: Bleeding, infection, possibility of epidural hematoma and subsequent neurological compromise, dural puncture, headaches, spinal cord and/or nerve damage, side effects of steroid medication, and poor results regarding pain control. Patient understands wished to proceed. Patient return to clinic in approximate 2 weeks for follow-up was counseled as to return appointment activity level and side effects to be aware of. Medication Injected: Med Injected: Procedure is lumbar epidural steroid injection under local anesthetic using sterile prep and drape at the L5-S1 level using C-arm fluoroscopic guidance in both AP and lateral views medications injected is 120 mg Depo-Medrol + 10 mL preservative-free normal saline and 2 mL contrast- condition at discharge is stable patient tolerated procedure well had no complications. Condition at Discharge: Condition at Discharge: Condition at discharge stable patient tolerated procedure well had no complications. JUAN TAYLOR MD Apr 14, 2020 08:56
== END | disposition home or self-care (01) ==
LOC: PNCL 08:12
PROVIDERS: ATTEND Anesthesiology
DX: M51.16 Intervertebral disc disorders with radiculopathy, lumbar region (principal); K21.9 Gastro-esophageal reflux disease without esophagitis; Z88.0 Allergy status to penicillin; Z88.8 Allergy status to other drugs, medicaments and biological substances; Z88.2 Allergy status to sulfonamides; Z79.82 Long term (current) use of aspirin; Z79.899 Other long term (current) drug therapy
CPT/HCPCS: 62323; J1030; J1040; Q9965

== ENCOUNTER → 2020-06-17 | Outpatient (CLI) | payer MEDICARE ==
--- NOTE | 2020-06-17 08:57 | PDOC ---
Progress Note - Pain Clinic Date of Service: DOS: DATE: 06/17/20 TIME: 08:53 Diagnosis: Dx: Lumbar radiculopathy with lumbar degenerative disc disease History or Present Illness: HPI: 70-year-old male returns follow-up status post lumbar epidural steroid action x1. Patient reports about 80% improvement initially over the first week or so within the pain returned over the next several weeks and now about 40% overall but still doing better but reports still pain in the low back bilateral lower extremities rating the posterior gluteus posterior thighs posterior calves bilaterally essentially right equal to left. Patient reports initially doing much better with distance walking doing work activities household activities and traveling with greater ease and comfort. Patient rates pain is a 10 on scale 10 is worse over the past week 8 on average 5 its least is an 8 today. Patient reports no new motor or sensory deficits with sleeping fairly well at night but occasionally is waking her from sleep over the past week or so but only about every 7-8 hours patient reports no new motor or sensory deficits no bowel or bladder incontinence describes the pain as aching and sharp dull radiating shooting in the back and legs with more constant pain in the legs with activity. Physical Exam: VS: Blood pressure is 136/91 pulse 98 respirations 16 temperature 98.4 F height is 6 foot 1 inch weight 264 pounds PE: PHYSICAL EXAMINATION: GENERAL: The patient is awake, alert, oriented, appropriate, very pleasant demeanor HEENT: Shows normocephalic, atraumatic. Extraocular movements are intact and symmetrical. NECK: Shows anterior throat supple without palpable lymphadenopathy noted. Swallow reflex symmetrical. CHEST: Shows normal on inspection. Breath sounds are clear to auscultation bilaterally. HEART: Shows S1, S2 clear. No murmurs auscultated. ABDOMEN: Soft, nontender, nondistended, obese. No palpable organomegaly is noted. No rebound or guarding demonstrated. BACK: Shows spine grossly in the midline. Normal-appearing cervical lordotic curvature. There is slightly increased thoracic kyphosis, some minor flattening of the lumbar lordotic curvature. Lumbar paraspinous muscles show symmetrical on inspection, on palpation shows some moderate tenderness diffusely throughout the upper, middle and lower distribution of the paraspinous muscles, but without specific trigger points, without radiation of pain. The patient has good rotational motion of the lumbar spine, both laterally as well as extension and flexion without significant difficulty. No tenderness over the spinous processes, sacrum or sacroiliac regions. EXTREMITIES: Lower extremities show deep tendon reflexes 1+ in the patellar and tendo calcaneus tendons. Motor exam is 5 on a scale of 5 with right dorsiflexion, extension, quadriceps and hamstring flexion and 5/5 on the left. Peripheral pulses are 1 posterior tibial. No peripheral edema is noted bilaterally. Lower extremities are warm and dry to touch, equal in color and appearance. SKIN: Shows warm and dry, good turgor. No edema. No sores, rashes or bruising throughout. Procedure: Procedure: Options were discussed with the patient. Patient's old chart was reviewed his his current medication regimen updated current review of systems updated today as well. We will proceed with a second in a series lumbar epidural steroid injection today with fluoroscopic guidance. Risks were discussed including but not limited to: Bleeding, infection, possibility of epidural hematoma and subsequent neurological compromise, dural puncture, headaches, spinal cord and/or nerve damage, side effects of steroid medication, and poor results regarding pain control. Patient understands wished to proceed. Patient will return to clinic in approximate 2 weeks for follow-up was counseled as to return appointment activity level and side effects to be aware of. Medication Injected: Med Injected: Procedure is lumbar epidural steroid injection under local anesthetic using sterile prep and drape at the L5-S1 level using C-arm fluoroscopic guidance in both AP and lateral views medications injected is 120 mg Depo-Medrol + 10 mL preservative-free normal saline and 2 mL contrast- condition at discharge is stable patient tolerated procedure well had no complications. Condition at Discharge: Condition at Discharge: Condition at discharge is stable, patient tolerated procedure well and had no complications. JUAN TAYLOR MD Jun 17, 2020 08:57
== END | disposition home or self-care (01) ==
LOC: PNCL 08:04
PROVIDERS: ATTEND Anesthesiology
DX: M51.16 Intervertebral disc disorders with radiculopathy, lumbar region (principal); Z79.82 Long term (current) use of aspirin; Z79.899 Other long term (current) drug therapy; Z88.0 Allergy status to penicillin; Z88.2 Allergy status to sulfonamides; Z88.1 Allergy status to other antibiotic agents; Z88.8 Allergy status to other drugs, medicaments and biological substances; Z72.89 Other problems related to lifestyle
CPT/HCPCS: 62323; J1030; J1040; Q9965

== ENCOUNTER → 2020-08-19 | Outpatient (CLI) | payer MEDICARE ==
--- NOTE | 2020-08-19 08:18 | PDOC ---
Progress Note - Pain Clinic Date of Service: DOS: DATE: 08/19/20 TIME: 08:16 Diagnosis: Dx: Lumbar radiculopathy with lumbar degenerative disc disease History or Present Illness: HPI: 70-year-old male returns for follow-up status post lumbar epidural steroid injections x2. Last seen June 17, 2020. Patient reports pain is improved by about 70% in the low back bilateral lower extremities now returning over the past several weeks in the low back posterior gluteus posterior thighs posterior calves to the ankles bilaterally. Patient reports radiating constant can be severe with walking and standing better with sitting or laying down generally does not awaken him sleep but over the past few weeks has every 6 hours or so. Patient scribes the pain in the back of the leg is aching sharp dull tight shooting tingling as well as cramping and stabbing. Patient rates his pain is a 10 on scale 10 is worse over the past week 7 on average 5 its least is a 5 today. Patient reports no new motor or sensory deficits no new bowel or bladder incontinence or complaints. Physical Exam: VS: Blood pressure 144/85 pulse 71 respirations 18 temperature 98.4 F height is 6 foot 1 his weight is 268 pounds PE: PHYSICAL EXAMINATION: GENERAL: The patient is awake, alert, oriented, appropriate, very pleasant demeanor HEENT: Shows normocephalic, atraumatic. Extraocular movements are intact and symmetrical. NECK: Shows anterior throat supple without palpable lymphadenopathy noted. Swallow reflex symmetrical. CHEST: Shows normal on inspection. Breath sounds are clear bilaterally, no rales rhonchi or wheezes auscultated. HEART: Shows S1, S2 clear. No murmurs auscultated. ABDOMEN: Soft, nontender, nondistended, obese. No palpable organomegaly is noted. No rebound or guarding demonstrated. BACK: Shows spine grossly in the midline. Normal-appearing cervical lordotic curvature. There is slightly increased thoracic kyphosis, some minor flattening of the lumbar lordotic curvature. Lumbar paraspinous muscles show symmetrical on inspection, on palpation shows some moderate tenderness diffusely throughout the upper, middle and lower distribution of the paraspinous muscles without specific trigger points, without radiation of pain. The patient has good rotational motion of the lumbar spine, both laterally as well as extension and flexion without significant difficulty. EXTREMITIES: Lower extremities show deep tendon reflexes 1+ in the patellar and tendo calcaneus tendons. Motor exam is 5 on a scale of 5 with right dorsiflexion, extension, quadriceps and hamstring flexion and 5/5 on the left. Peripheral pulses are 1+ posterior tibial. No peripheral edema is noted bilaterally. Lower extremities are warm and dry to touch, equal in color and appearance. SKIN: Shows warm and dry, good turgor. No edema. No sores, rashes or bruising throughout. Procedure: Procedure: Options were discussed with patient. Patient chart was reviewed his current medication regimen updated current review of systems updated today as well. We will proceed with a third in the series lumbar epidural steroid injection today with fluoroscopic guidance. Risks were discussed including but not limited to: Bleeding, infection, possibility of epidural hematoma and subsequent neurological compromise, dural puncture, headaches, spinal cord and/or nerve damage, side effects of steroid medication, and poor results regarding pain control. Patient understands and wished to proceed. Patient will return [facility] approximate 2 weeks for follow-up, was counseled as return appointment to [facility] and side effects be aware of. Medication Injected: Med Injected: Procedure is lumbar epidural steroid injection under local anesthetic using sterile prep and drape at the L5-S1 level using C-arm fluoroscopic guidance in both AP and lateral views medications injected is 120 mg Depo-Medrol + 10 mL preservative-free normal saline and 2 mL contrast- condition at discharge is stable patient tolerated procedure well had no complications. Condition at Discharge: Condition at Discharge: Condition at discharge stable, patient tolerated procedure well and had no complications. JUAN TAYLOR MD Aug 19, 2020 08:18
--- NOTE | 2020-08-19 08:19 | PDOC4 ---
PROCEDURE Procedure Patient was consented for lumbar epidural steroid injection. Risks were dis cussed including but not limited to: Bleeding, infection, possibility of epidural hematoma and subsequent neurological compromise, dural puncture, headaches, spinal cord and/or nerve damage, side effects of steroid medication, and poor results regarding pain control. Patient understands and wished to proceed. Procedure is lumbar epidural steroid injection under local anesthetic using sterile prep and drape at the L5-S1 level using C-arm fluoroscopic guidance in both AP and lateral views medications injected is 120 mg Depo-Medrol + 10 mL preservative-free normal saline and 2 mL contrast- condition at discharge is stable patient tolerated procedure well had no complications. JUAN TAYLOR MD Aug 19, 2020 08:19
== END | disposition home or self-care (01) ==
LOC: PNCL 07:40
PROVIDERS: ATTEND Anesthesiology
DX: M51.16 Intervertebral disc disorders with radiculopathy, lumbar region (principal); Z79.82 Long term (current) use of aspirin; Z79.899 Other long term (current) drug therapy; Z98.890 Other specified postprocedural states; Z88.0 Allergy status to penicillin; Z88.1 Allergy status to other antibiotic agents; Z88.2 Allergy status to sulfonamides; Z72.89 Other problems related to lifestyle
CPT/HCPCS: 62323; J1030; J1040; Q9965

== ENCOUNTER → 2020-10-15 | Outpatient (CLI) | payer MEDICARE ==
[~2020-10-15] MED LIST changes: +FURO20TA3 PO; -IOHEXOL 180 MG/ML 10 ML VIAL. ONE; -methylPREDNISolone ACETATE 40 MG/ML VIAL. ONE; -methylPREDNISolone ACETATE 80 MG/ML VIAL. ONE
--- NOTE | 2020-10-15 08:19 | PDOC ---
Progress Note - Pain Clinic Date of Service: DOS: DATE: 10/15/20 TIME: 08:16 Diagnosis: Dx: Lumbar radiculopathy with lumbar degenerative disc disease History or Present Illness: HPI: 70-year-old male returns follow-up status post lumbar epidural steroid injection x3. Last seen August 19, 2020 patient did very well with about 80% improvement initially with the injection now the pain is returning over the past 2 weeks or so in the low back bilateral lower extremities posterior gluteus posterior thigh posterior calves bilaterally right equal to left patient reports its tingling and burning cramping at times aching and dull sharp in the legs with radiating shooting pain in the legs as well patient reports is worse with walking standing changing positions better with sitting or laying down generally does not awaken her from sleep at night but over the past few weeks it has begun to about a 4 to 5 hours patient rates his pain is a 10 on scale 10 is worse over the past week 7 on average for its least is a 7 today. Patient reports no new motor or sensory deficits noted point. Patient also taking oxycodone which she reports does very well up to 4 tablets daily with good decrease in pain and without any specific side effects. Physical Exam: VS: Blood pressure is 137/88 pulse 76 respirations are 18 temperature is 98.2 F height is 6 foot 1 his weight is 266 pounds PE: PHYSICAL EXAMINATION: GENERAL: The patient is awake, alert, oriented, appropriate, very pleasant demeanor HEENT: Shows normocephalic, atraumatic. Extraocular movements are intact and symmetrical. Oral cavity: Mucous membranes moist and pink. NECK: Shows anterior throat supple without palpable lymphadenopathy noted. Swallow reflex symmetrical. CHEST: Shows normal on inspection. Breath sounds are clear bilaterally, no rales or rhonchi. HEART: Shows S1, S2 clear. No murmurs auscultated. ABDOMEN: Soft, nontender, nondistended, obese. No palpable organomegaly is noted. No rebound or guarding demonstrated. BACK: Shows spine grossly in the midline. Normal-appearing cervical lordotic curvature. There is increased thoracic kyphosis, some minor flattening of the lumbar lordotic curvature. Lumbar paraspinous muscles show symmetrical on inspection, on palpation shows some moderate tenderness diffusely throughout the upper, middle and lower distribution of the paraspinous muscles without specific trigger points, without radiation of pain. The patient has good rotational motion of the lumbar spine, both laterally as well as extension and flexion without significant difficulty. EXTREMITIES: Lower extremities show deep tendon reflexes 1+ in the patellar and tendo calcaneus tendons. Motor exam is 5 on a scale of 5 with right dorsiflexion, extension, quadriceps and hamstring flexion and 5/5 on the left. Peripheral pulses are 1+ to posterior tibial. No peripheral edema is noted bilaterally. Lower extremities are warm and dry to touch, equal in color and appearance. SKIN: Shows warm and dry, good turgor. No edema. No sores, rashes or bruising throughout. Procedure: Procedure: Options were discussed with the patient. Patient's old chart was reviewed his current medication regimen updated current review of systems updated today as well. We will proceed with a first in the series lumbar epidural steroid traction stable fluoroscopic guidance. Risks were discussed including but not limited to: Bleeding, infection, possibility of epidural hematoma and subsequent neurological compromise, dural puncture, headaches, spinal cord and/or nerve damage, side effects of steroid medication, and poor results regarding pain cont rol. Patient understands and wished to proceed. Patient return to clinic in approximately 2 weeks for follow-up with counselors return appointment activity level and side effects to be aware of. Medication Injected: Med Injected: Procedure is lumbar epidural steroid injection under local anesthetic using sterile prep and drape at the L5-S1 level using C-arm fluoroscopic guidance in both AP and lateral views medications injected is 120 mg Depo-Medrol + 10 mL preservative-free normal saline and 2 mL contrast- condition at discharge is stable patient tolerated procedure well had no complications. Condition at Discharge: Condition at Discharge: Condition at discharge stable, patient tolerated procedure well and had no complications. JUAN TAYLOR MD Oct 15, 2020 08:19
--- NOTE | 2020-10-15 08:20 | PDOC4 ---
PROCEDURE Procedure Patient was consented for lumbar epidural steroid injection. Risks were dis cussed including but not limited to: Bleeding, infection, possibility of epidural hematoma and subsequent neurological compromise, dural puncture, headaches, spinal cord and/or nerve damage, side effects of steroid medication, and poor results regarding pain control. Patient understands and wished to proceed. Procedure is lumbar epidural steroid injection under local anesthetic using sterile prep and drape at the L5-S1 level using C-arm fluoroscopic guidance in both AP and lateral views medications injected is 120 mg Depo-Medrol + 10 mL preservative-free normal saline and 2 mL contrast- condition at discharge is stable patient tolerated procedure well had no complications. JUAN TAYLOR MD Oct 15, 2020 08:20
== END | disposition home or self-care (01) ==
LOC: PNCL 07:44
PROVIDERS: ATTEND Anesthesiology
DX: M51.16 Intervertebral disc disorders with radiculopathy, lumbar region (principal); Z79.82 Long term (current) use of aspirin; Z79.899 Other long term (current) drug therapy; Z98.890 Other specified postprocedural states; Z72.89 Other problems related to lifestyle; Z88.0 Allergy status to penicillin; Z88.1 Allergy status to other antibiotic agents; Z88.2 Allergy status to sulfonamides
CPT/HCPCS: 62323; 77002

== ENCOUNTER → 2020-12-14 | Outpatient (CLI) | payer MEDICARE ==
[~2020-12-14] MED LIST changes: +IOHEXOL 180 MG/ML 10 ML VIAL. ONE; +methylPREDNISolone ACETATE 40 MG/ML VIAL. ONE; +methylPREDNISolone ACETATE 80 MG/ML VIAL. ONE
--- NOTE | 2020-12-14 08:19 | PDOC ---
Progress Note - Pain Clinic Date of Service: DOS: DATE: 12/14/20 TIME: 08:17 Diagnosis: Dx: Lumbar radiculopathy with lumbar degenerative disc disease History or Present Illness: HPI: 70-year-old male returns for follow-up status post lumbar epidural steroid injection x1 and medication managed with oxycodone. Patient reports doing very well with about 30% improvement overall after last injection 75% improvement however with the medication without any significant side effects of occasional constipation which he takes care with increased hydration. 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 and has had some increased pain in the low back rating the posterior gluteus posterior thighs posterior calves bilaterally patient reports is worse with walking standing bending stooping or lifting patient reports is aching and sharp in the back dull and tight shooting in the lower extremities can be stabbing and radiating patient reports no new motor or sensory deficits no new bowel or bladder incontinence patient reports initially doing much better with work activities household activities travel with greater ease with the pain is now returning fairly significantly in the lower extremities is noted. Patient reports no new bowel or bladder incontinence no new motor or sensory deficits. Physical Exam: VS: Blood pressure is 128/75, pulse 72, respirations 20, temperature 97.9 F, height is 6 foot weight is 268 pounds PE: PHYSICAL EXAMINATION: GENERAL: The patient is awake, alert, oriented, appropriate, very pleasant demeanor HEENT: Shows normocephalic, atraumatic. Extraocular movements are intact and symmetrical. Oral cavity: Mucous membranes moist and pink. Dentition is inta ct. NECK: Shows anterior throat supple without palpable lymphadenopathy noted. Swallow reflex symmetrical. CHEST: Shows normal on inspection. Breath sounds are clear and distant bilaterally, no rales or rhonchi. HEART: Shows S1, S2 clear. No murmurs auscultated. ABDOMEN: Soft, nontender, nondistended, obese. No palpable organomegaly is noted. No rebound or guarding demonstrated. BACK: Shows spine grossly in the midline. Normal-appearing cervical lordotic curvature. There is slightly increased thoracic kyphosis, some minor flattening of the lumbar lordotic curvature. Lumbar paraspinous muscles show symmetrical on inspection, on palpation shows some moderate tenderness diffusely throughout the upper, middle and lower distribution of the paraspinous muscles, but without specific trigger points, without radiation of pain. The patient has good rotational motion of the lumbar spine, both laterally as well as extension and flexion without significant difficulty. No tenderness over the spinous processes, sacrum or sacroiliac regions. EXTREMITIES: Lower extremities show deep tendon reflexes 1+ in the patellar and tendo calcaneus tendons. Motor exam is 5 on a scale of 5 with right dorsiflexion, extension, quadriceps and hamstring flexion and 5/5 on the left. Peripheral pulses are 1+ posterior tibial. No peripheral edema is noted bilaterally. Lower extremities are warm and dry. SKIN: Shows warm and dry, good turgor. No edema. No sores, rashes or bruising throughout. Procedure: Procedure: Options were discussed with the patient. Patient chart was reviewed his current medication regimen updated current review of systems updated today as well. We will proceed with a second in the series lumbar epidural steroid injection today with fluoroscopic guidance. Risks were discussed including but not limited to: Bleeding, infection, possibility of epidural hematoma and subsequent neurological compromise, dural puncture, headaches, spinal cord and/or nerve damage, side effects of steroid medication, and poor results regarding pain control. Patient understands and wished to proceed. Patient will return to the clinic in approximately 2 weeks for follow-up, was counseled as to return appointment activity level and side effects to be aware of. Medication Injected: Med Injected: Procedure is lumbar epidural steroid injection under local anesthetic using sterile prep and drape at the L5-S1 level using C-arm fluoroscopic guidance in both AP and lateral views medications injected is 120 mg Depo-Medrol +10mL preservative-free normal saline and 2 mL contrast- condition at discharge is sta ble patient tolerated procedure well had no complications. Condition at Discharge: Condition at Discharge: Condition at discharge stable, patient tolerated procedure well and had no complications. JUAN TAYLOR MD December 14, 2020 08:19
--- NOTE | 2020-12-14 08:20 | PDOC4 ---
PROCEDURE Procedure Patient was consented for lumbar epidural steroid injection. Risks were dis cussed including but not limited to: Bleeding, infection, possibility of epidural hematoma and subsequent neurological compromise, dural puncture, headaches, spinal cord and/or nerve damage, side effects of steroid medication, and poor results regarding pain control. Patient understands and wished to proceed. Procedure is lumbar epidural steroid injection under local anesthetic using sterile prep and drape at the L5-S1 level using C-arm fluoroscopic guidance in both AP and lateral views medications injected is 120 mg Depo-Medrol +10mL preservative-free normal saline and 2 mL contrast- condition at discharge is stable patient tolerated procedure well had no complications. JUAN TAYLOR MD December 14, 2020 08:20
== END | disposition home or self-care (01) ==
LOC: PNCL 07:37
PROVIDERS: ATTEND Anesthesiology
DX: M51.16 Intervertebral disc disorders with radiculopathy, lumbar region (principal); Z79.82 Long term (current) use of aspirin; Z79.899 Other long term (current) drug therapy; Z72.89 Other problems related to lifestyle; Z88.0 Allergy status to penicillin; Z88.2 Allergy status to sulfonamides; Z88.1 Allergy status to other antibiotic agents
CPT/HCPCS: 62323; J1030; J1040; Q9965

== ENCOUNTER → 2021-02-16 | Outpatient (CLI) | payer MEDICARE ==
[~2021-02-16] MED LIST changes: +OXYC1TAB20 PO
--- NOTE | 2021-02-16 08:17 | PDOC ---
Progress Note - Pain Clinic Date of Service: DOS: DATE: 02/16/21 TIME: 08:13 Diagnosis: Dx: Lumbar radiculopathy with lumbar degenerative disc disease History or Present Illness: HPI: 70-year-old male returns for follow-up status post lumbar epidural to injection x2 most recently December 14, 2020. Patient did very well with about overall 45% improvement initially much better but the pain is returning now over the past few weeks into the low back bilateral lower extremities posterior gluteus posterior thigh posterior calf worse on the left than the right but present bilaterally. Patient reports a 10 on scale 10 is worse over the past week 9 on average 7 its least is a 7 today describes aching sharp dull tight shooting tingling burning cramping can be radiating constant with walking standing better with sitting or laying down but is waking from sleep again about every 4 hours patient reports initially was doing much better with distance walking doing household activities work activities travel with greater ease and comfort as we ll. Patient reports no new motor or sensory deficits no new bowel or bladder incontinence. 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 Physical Exam: VS: Blood pressure is 125/81 pulse 74 respirations 18 temperature 98.4 F height is 6 foot weight is 273 pounds PE: PHYSICAL EXAMINATION: GENERAL: The patient is awake, alert, oriented, appropriate, very pleasant in demeanor HEENT: Shows normocephalic, atraumatic. Extraocular movements are intact and symmetrical. NECK: Shows anterior throat supple without palpable lymphadenopathy noted. Swallow reflex symmetrical. CHEST: Shows normal on inspection. Breath sounds are clear bilaterally. HEART: Shows S1, S2 clear. No murmurs auscultated. ABDOMEN: Soft, nontender, nondistended. No palpable organomegaly is noted. BACK: Shows spine grossly in the midline. Normal-appearing cervical lordotic curvature. There is slightly increased thoracic kyphosis, some minor flattening of the lumbar lordotic curvature. Lumbar paraspinous muscles show symmetrical on inspection, on palpation shows some moderate tenderness diffusely throughout the upper, middle and lower distribution of the paraspinous muscles without specific trigger points, without radiation of pain. The patient has good rotational motion of the lumbar spine, both laterally as well as extension and flexion without significant difficulty. EXTREMITIES: Lower extremities show deep tendon reflexes 1+ in the patellar and tendo calcaneus tendons. Motor exam is 5 on a scale of 5 with right dorsiflexion, extension, quadriceps and hamstring flexion and 5/5 on the left. Peripheral pulses are 1 posterior tibial. No peripheral edema is noted bilaterally. Lower extremities are warm and dry to touch, equal in color and appearance. SKIN: Shows warm and dry, good turgor. No edema. No sores, rashes or bruising throughout. Procedure: Procedure: Options were discussed with patient. Patient chart reviewed his his current medication regimen updated current view of systems updated today as well. We will proceed with a third in the series lumbar epidural steroid injection stable fluoroscopic guidance. Risks were discussed including but not limited to: Bl eeding, infection, possibility of epidural hematoma and subsequent neurological compromise, dural puncture, headaches, spinal cord and/or nerve damage, side effects of steroid medication, and poor results regarding pain control. Patient understands and wished to proceed. Patient return to the clinic in approximately 4 weeks for follow-up, was counseled as return appointment activ ity level and side effects beware. We also refill patient's oxycodone as he has done very well with this, stable regimen and has appropriate K tracks report as well as appropriate urinalyses to date. Patient given instructions as well as side effects beware with the medication. Medication Injected: Med Injected: Procedure is lumbar epidural steroid injection under local anesthetic using sterile prep and drape at the L5-S1 level using C-arm fluoroscopic guidance in both AP and lateral views medications injected is 120 mg Depo-Medrol +10mL preservative-free normal saline and 2 mL contrast- condition at discharge is stable patient tolerated procedure well had no complications. Condition at Discharge: Condition at Discharge: Condition at discharge is stable, patient alert the procedure well and had no complications. JUAN TAYLOR MD Feb 16, 2021 08:17
--- NOTE | 2021-02-16 08:18 | PDOC4 ---
Procedure Note: ICD 10 Code: ICD 10 Code: M 54.17 M 51.36 Procedure Note: Patient was consented for lumbar epidural steroid injection. Risks were discussed including but not limited to: Bleeding, infection, possibility of epidural hematoma and subsequent neurological compromise, dural puncture, headaches, spinal cord and/or nerve damage, side effects of steroid medication, and poor results regarding pain control. Patient understands and wished to proceed. Procedure is lumbar epidural steroid injection under local anesthetic using sterile prep and drape at the L5-S1 level using C-arm fluoroscopic guidance in both AP and lateral views medications injected is 120 mg Depo-Medrol +10mL preservative-free normal saline and 2 mL contrast- condition at discharge is stable patient tolerated procedure well had no complications. JUAN TAYLOR MD Feb 16, 2021 08:17
== END | disposition home or self-care (01) ==
LOC: PNCL 07:41
PROVIDERS: ATTEND Anesthesiology
DX: M51.16 Intervertebral disc disorders with radiculopathy, lumbar region (principal); Z79.82 Long term (current) use of aspirin; Z79.899 Other long term (current) drug therapy; Z88.0 Allergy status to penicillin; Z88.1 Allergy status to other antibiotic agents; Z88.2 Allergy status to sulfonamides; Z88.8 Allergy status to other drugs, medicaments and biological substances; Z72.89 Other problems related to lifestyle
CPT/HCPCS: 62323; J1030; J1040; Q9965

== ENCOUNTER → 2021-04-19 | Outpatient (CLI) | payer MEDICARE ==
[~2021-04-19] MED LIST changes: +CYCL10TA2 PO; +OXYC10TA PO; -methylPREDNISolone ACETATE 40 MG/ML VIAL. ONE
--- NOTE | 2021-04-19 09:30 | PDOC4 ---
Procedure Note: ICD 10 Code: ICD 10 Code: M54.17 M51.87 Procedure Note: Patient was consented for lumbar epidural steroid injection with fluoroscopic guidance. Risks were discussed including but not limited to: Bleeding, infection, possibility of epidural hematoma and subsequent neurological compromise, dural puncture, headaches, spinal cord and/or nerve damage, side effects of steroid medication, and poor results regarding pain control. Patient understands and wished to proceed. Procedure is lumbar epidural steroid injection under local anesthetic using sterile prep and drape at the L5-S1 level using C-arm fluoroscopic guidance in both AP and lateral views medications injected is 120 mg Depo-Medrol +10mL preservative-free normal saline and 2 mL contrast- condition at discharge is stable patient tolerated procedure well had no complications. JUAN TAYLOR MD Apr 19, 2021 09:30
--- NOTE | 2021-04-19 09:30 | PDOC ---
Progress Note - Pain Clinic Date of Service: DOS: DATE: 04/19/21 TIME: 09:26 Diagnosis: Dx: Lumbar radiculopathy with lumbar degenerative disc disease History or Present Illness: HPI: 70-year-old male returns for follow-up status post lumbar epidural steroid injections most recently February 16, 2021 patient did very well with approximately 80% improvement initially for the first 6 weeks or so the pain began to return gradually in the low back and now more in the right lower extremity patient reports new pain of right groin pain which he has not had previously and is undergoing further work-up with his primary care physician but the pain in the groin hours is noticeable as well on the right side only also pain in the right posterior gluteus posterior thigh posterior calf and left posterior thigh and calf radiating a radicular fashion as previously patient reports pain is a 10 on scale 10 is worse with the past week 7 on average 5 its least is a 7 today patient ports tingling burning aching dull tight sharp and shooting can be ra diating constant with activity worse with walking standing better with sitting or laying down but does awaken her from sleep about once or twice a night patient reports no loss of motor function but significant fatigability now the right leg especially the new right groin pain. Patient has had bilateral hip joint replacements and his primary physician is ordering new x-ray films for the bilateral hips. Physical Exam: VS: Blood pressure is 121/84 pulse 114 respirations 18 temperature 98.0 F weight is 274 pounds PE: PHYSICAL EXAMINATION: GENERAL: The patient is awake, alert, oriented, appropriate, very pleasant in demeanor HEENT: Shows normocephalic, atraumatic. Extraocular movements are intact and sy mmetrical. Oral cavity: Mucous membranes moist and pink. Dentition is intact. NECK: Shows anterior throat supple without palpable lymphadenopathy noted. Swallow reflex symmetrical. CHEST: Shows normal on inspection. Breath sounds are clear bilaterally, no rales rhonchi or wheezes auscultated. HEART: Shows S1, S2 clear. No murmurs auscultated. ABDOMEN: Soft, nontender, nondistended, obese. No palpable organomegaly is noted. BACK: Shows spine grossly in the midline. Normal-appearing cervical lordotic curvature. There is increased thoracic kyphosis, some flattening of the lumbar lordotic curvature. Lumbar paraspinous muscles show symmetrical on inspection, on palpation shows some moderate tenderness diffusely throughout the upper, middle and lower distribution of the paraspinous muscles, but without specific trigger points, without radiation of pain. The patient has good rotational motion of the lumbar spine, both laterally as well as extension and flexion without significant difficulty. 5 EXTREMITIES: Lower extremities show deep tendon reflexes 1+ in the patellar and tendo calcaneus tendons. Motor exam is 5 on a scale of 5 with right dorsiflexion, extension, quadriceps and hamstring flexion and 5/5 on the left. Peripheral pulses are 1+ posterior tibial. No peripheral edema is noted bilaterally. Lower extremities are warm and dry. SKIN: Shows warm and dry, good turgor. No edema. No sores, rashes or bruising throughout. Procedure: Procedure: Options were discussed with the patient. Patient chart was reviewed his current medication regimen updated current review of systems updated today as well. We will proceed with a lumbar epidural steroid injection today with fluoroscopic guidance. Risks were discussed including but not limited to: Bleeding, infection, possibility of epidural hematoma and subsequent neurological compromise, dural puncture, headaches, spinal cord and/or nerve damage, side effects of steroid medication, and poor results regarding pain control. Patient understands and wished to proceed. Patient will return to the clinic in approximately 2 weeks for follow-up, was counseled as return appointment, activity, and side effects aware of. Patient also will be called in electronic prescribing refill prescription oxycodone 10 mg with instructions side effects related discussed with the medication. We also discussed possibility of physical therapy if patient's hip films look unchanged. Patient will consider this in the future as well. Medication Injected: Med Injected: Procedure is lumbar epidural steroid injection under local anesthetic using [place] prep and drape at the L5-S1 level using C-arm fluoroscopic guidance in both AP and lateral views medications injected is 120 mg Depo-Medrol +10mL preservative-free normal saline and 2 mL contrast- condition at discharge is stable patient tolerated procedure well had no complications. Condition at Discharge: Condition at Discharge: Condition at discharge is stable, patient tolerated the procedure well and had no complications. JUAN TAYLOR MD Apr 19, 2021 09:30
== END | disposition home or self-care (01) ==
LOC: PNCL 09:00
PROVIDERS: ATTEND Anesthesiology
DX: M51.16 Intervertebral disc disorders with radiculopathy, lumbar region (principal); Z79.82 Long term (current) use of aspirin; Z79.899 Other long term (current) drug therapy; Z88.0 Allergy status to penicillin; Z88.1 Allergy status to other antibiotic agents; Z88.2 Allergy status to sulfonamides; Z72.89 Other problems related to lifestyle
CPT/HCPCS: 62323; J1040; Q9965

== ENCOUNTER → 2021-05-14 | Outpatient (CLI) | payer MEDICARE ==
[~2021-05-14] MED LIST changes: -IOHEXOL 180 MG/ML 10 ML VIAL. ONE; -methylPREDNISolone ACETATE 80 MG/ML VIAL. ONE
--- NOTE | 2021-05-14 14:16 | NUR ---
Patient called requesting med refills, verified name ,pharmacy. patient denies new medical problems, new medications, allergies or constipation. patient states his pain level is a 4,. Confirmed his next appointment. [facility] is appropriate. Call transferred to Dr Mckeon.
--- NOTE | 2021-05-14 14:19 | PDOC ---
Progress Note - Pain Clinic Date of Service: DOS: DATE: 05/14/21 TIME: 14:14 History or Present Illness: HPI: Telemedicine visit today with patient's identity verified with date of as well as full name, total time spent 12 minutes 70-year-old male via telemedicine visit today requesting medication refill of oxycodone 10 mg/325. Patient's been on very stable regimen with the medication reports about a 75 to 80% improvement with the medicines daily activities as tolerated very well. Patient reports no side effects with medications, patient has had appropriate K tracks report as well as appropriate urinalyses to date as well. Patient reports has been increase his activity with some walking these been doing more frequently which seems to help the pain while he is walking but then it can be more sore afterwards. Patient reports regardless he still doing very well with the medication and once again no side effects with good decrease in gait ability to perform daily activities for the most part. We will refill patient's medication as he has had appropriate K tracks report as well as appropriate urinalyses to date. Will be a 30-day refill, patient will follow up in approximate 4 weeks as scheduled. Physical Exam: PE: JUAN TAYLOR MD May 14, 2021 14:19
== END | disposition home or self-care (01) ==
LOC: PNCL 10:37
PROVIDERS: ATTEND Anesthesiology
DX: R69 Illness, unspecified (principal); Z79.82 Long term (current) use of aspirin; Z79.899 Other long term (current) drug therapy; Z72.89 Other problems related to lifestyle; Z88.1 Allergy status to other antibiotic agents; Z88.0 Allergy status to penicillin; Z88.2 Allergy status to sulfonamides; Z88.8 Allergy status to other drugs, medicaments and biological substances
CPT/HCPCS: 99212; G0463

== ENCOUNTER → 2021-06-14 | Outpatient (CLI) | payer MEDICARE ==
[~2021-06-14] MED LIST changes: +CYCL10TA19 PO; -CYCL10TA2 PO; +IOHEXOL 180 MG/ML 10 ML VIAL. ONE; +methylPREDNISolone ACETATE 40 MG/ML VIAL. ONE; +methylPREDNISolone ACETATE 80 MG/ML VIAL. ONE
--- NOTE | 2021-06-14 08:20 | PDOC ---
Progress Note - Pain Clinic Date of Service: DOS: DATE: 06/14/21 TIME: 08:17 Diagnosis: Dx: Lumbar radiculopathy with lumbar degenerative disc disease History or Present Illness: HPI: 71-year-old male returns for follow-up status post lumbar epidural steroid injection x1 April 19, 2021. Patient reports did very well about 80% improvement initially and reports that it was much better than the previous injection but the pain is returning now in his low back and legs about a 50% level overall but was good for almost 4 months patient reports that he is to increase activities greater ease and comfort walking greater distances doing household activities working activities traveling with greater ease and sleeping better patient reports still waking from sleep about once every 4 hours over the past week or so prior to that was doing much better patient reports the pain is in the low back and bilateral lower extremities posterior gluteus posterior thigh posterior calves radiating to the ankles patient scribes aching and sharp in the back dull tight shooting in the legs radiating constant in the legs tingling burning can be cramping stabbing as well as a 10 on scale 10 is worst over this past week 7 on average 5 its least is a 7 today. Patient reports no bowel or bladder incontinence. Patient also taking oxycodone 10 mg with good decrease in pain as well which gets him through the days when he is working especially with increased activity and without significant side effects. Patient has had appropriate K tracks report as well as appropriate urinalyses to date as well and will have urinalysis done today as part of routine screening. Physical Exam: VS: Blood pressure is 134/70 pulse 77 respirations 18 temperature 97.9 F weight is 278 pounds PE: PHYSICAL EXAMINATION: GENERAL: The patient is awake, alert, oriented, appropriate, very pleasant in demeanor HEENT: Shows normocephalic, atraumatic. Extraocular movements are intact and symmetrical. Oral cavity: Mucous membranes moist and pink. Dentition is intact. NECK: Shows anterior throat supple without palpable lymphadenopathy noted. Swallow reflex symmetrical. CHEST: Shows normal on inspection. Breath sounds are clear bilaterally, no rales rhonchi or wheezes. HEART: Shows S1, S2 clear. No murmurs auscultated. ABDOMEN: Soft, nontender, nondistended, obese. No palpable organomegaly is noted. BACK: Shows spine grossly in the midline. Normal-appearing cervical lordotic curvature. There is increased thoracic kyphosis, some flattening of the lumbar lordotic curvature. Lumbar paraspinous muscles show symmetrical on inspection, on palpation shows some moderate tenderness diffusely throughout the upper, middle and lower distribution of the paraspinous muscles but without specific trigger points, without radiation of pain. The patient has good rotational motion of the lumbar spine, both laterally as well as extension and flexion without significant difficulty. EXTREMITIES: Lower extremities show deep tendon reflexes 1+ in the patellar and tendo calcaneus tendons. Motor exam is 5 on a scale of 5 with right dorsiflexion, extension, quadriceps and hamstring flexion and 5/5 on the left. Peripheral pulses are 1 posterior tibial. No peripheral edema is noted bilaterally. Lower extremities are warm and dry. SKIN: Shows warm and dry, good turgor. No edema. No sores, rashes or bruising throughout. Procedure: Procedure: Options were discussed with the patient. Patient chart reviewed his current medication regimen updated current review of systems updated today as well. We will proceed with a lumbar epidural steroid injection today with fluoroscopic guidance. Risks were discussed including but not limited to: Bleeding, infection, possibility of epidural hematoma and subsequent neurological compromise, dural puncture, headaches, spinal cord and/or nerve damage, side effects of steroid medication, and poor results regarding pain control. Patient understands and wished to proceed. Patient return to the clinic in approximate 4 weeks with follow-up, was counseled return appointment, activity level, and side effect to be aware of. Medication Injected: Med Injected: Procedure is lumbar epidural steroid injection under local anesthetic using sterile prep and drape at the L5-S1 level using C-arm fluoroscopic guidance in both AP and lateral views medications injected is 120 mg Depo-Medrol +10mL preservative-free normal saline and 2 mL contrast- condition at discharge is stable patient tolerated procedure well had no complications. Condition at Discharge: Condition at Discharge: Condition at discharge stable, patient tolerated procedure well and had no complications. JUAN TAYLOR MD Jun 14, 2021 08:20
--- NOTE | 2021-06-14 08:21 | PDOC4 ---
Procedure Note: ICD 10 Code: ICD 10 Code: M54.17 M51.87 Z 79.899 Procedure Note: Patient was consented for lumbar epidural steroid injection with fluoroscopic guidance. Risks were discussed including but not limited to: Bleeding, infection, possibility of epidural hematoma and subsequent neurological compromise, dural puncture, headaches, spinal cord and/or nerve damage, side effects of steroid medication, and poor results regarding pain control. Patient understands and wished to proceed. Procedure is lumbar epidural steroid injection under local anesthetic using st erile prep and drape at the L5-S1 level using C-arm fluoroscopic guidance in both AP and lateral views medications injected is 120 mg Depo-Medrol +10mL preservative-free normal saline and 2 mL contrast- condition at discharge is stable patient tolerated procedure well had no complications. JUAN TAYLOR MD Jun 14, 2021 08:21
== END | disposition home or self-care (01) ==
LOC: PNCL 07:41
PROVIDERS: ATTEND Anesthesiology
DX: M51.16 Intervertebral disc disorders with radiculopathy, lumbar region (principal); Z79.899 Other long term (current) drug therapy; Z79.82 Long term (current) use of aspirin; Z88.0 Allergy status to penicillin; Z88.1 Allergy status to other antibiotic agents; Z88.2 Allergy status to sulfonamides; Z88.8 Allergy status to other drugs, medicaments and biological substances
CPT/HCPCS: 62323; J1030; J1040; Q9965

== ENCOUNTER → 2021-07-12 | Outpatient (CLI) | payer MEDICARE ==
[~2021-07-12] MED LIST changes: -IOHEXOL 180 MG/ML 10 ML VIAL. ONE; -methylPREDNISolone ACETATE 40 MG/ML VIAL. ONE; -methylPREDNISolone ACETATE 80 MG/ML VIAL. ONE
--- NOTE | 2021-07-12 12:56 | PDOC ---
Progress Note - Pain Clinic Date of Service: DOS: DATE: 07/12/21 TIME: 12:54 Diagnosis: Dx: Lumbar radiculopathy with lumbar degenerative disc disease History or Present Illness: HPI: Telemedicine visit today with patient's identity verified with full date of as well as full name, total time spent 11 minutes 71-year-old male with telemedicine visit today requesting refill of oxycodone patient has been on very stable regimen also had lumbar epidural steroid injection June 14 did very well with this reports also pain low back and the lower extremities bilaterally but do much better that was increase his activity with greater ease and comfort walking greater distances still depending on oral pain medication however which she reports is doing very well without any side effects at this time. Patient has had appropriate K tracks report as well as appropriate urinalyses to date as well. After discussion, we will refill patient's oxycodone 10 mg with instructions side effects beware for 1 month period. Patient to follow-up in approximate 4 weeks as scheduled. JUAN TAYLOR MD Jul 12, 2021 12:56
--- NOTE | 2021-07-12 15:22 | NUR ---
Pt called clinic requesting refill on Oxycodone. Pts. pharmacy and appt date verified. Pt denies any new health issues or side effects from narcotic. Pt states pain level averages 5-6/10. Dr. Mckeon spoke with pt and escribed meds. Tree Farfan RN
== END | disposition home or self-care (01) ==
LOC: PNCL 11:19
PROVIDERS: ATTEND Anesthesiology
DX: M51.16 Intervertebral disc disorders with radiculopathy, lumbar region (principal); Z79.82 Long term (current) use of aspirin; Z79.899 Other long term (current) drug therapy; Z72.89 Other problems related to lifestyle; Z88.0 Allergy status to penicillin; Z88.1 Allergy status to other antibiotic agents; Z88.2 Allergy status to sulfonamides
CPT/HCPCS: 99212; G0463

== ENCOUNTER → 2021-08-23 | Outpatient (CLI) | payer MEDICARE ==
[~2021-08-23] MED LIST changes: +IOHEXOL 180 MG/ML 10 ML VIAL. ONE; +methylPREDNISolone ACETATE 80 MG/ML VIAL. ONE
--- NOTE | 2021-08-23 08:26 | PDOC ---
Progress Note - Pain Clinic Date of Service: DOS: DATE: 08/23/21 TIME: 08:21 Diagnosis: Dx: Lumbar radiculopathy with lumbar degenerative disc disease History or Present Illness: HPI: 71-year-old male returns for follow-up status post lumbar epidural steroid injection last seen June 14, 2021 patient did very well also managed with oxycodone patient taking 10 mg up to 4 times daily when necessary patient reports that he does well with this keeps him on an even level of pain relief with about a 75% improvement with the medication alone and without side effects, and about 50% with the injection patient reports injection last time was not as significant as he was doing some yard work around the time of the injection that needed to be completed and feels he strained his back greater than most times when he is able to rest after the injection. Patient rates his pain a 10 on scale 10 is worse over the past week 7 on average 5 its least is a 7 today patient tribes in the low back rating to bilateral lower extremities left great er than right in the posterior gluteus posterior thighs posterior calves aching sharp dull sometimes tight and shooting significantly more noticeable on the left side however notes last time it was more on the right side pain seems to have changed with left-sided pain more prominent. Patient reports no recent injuries or accidents no stumbling or falling does have some significant fatigability now in the left leg with standing or walking which is new but no motor loss. Patient reports no bowel or bladder incontinence. Physical Exam: VS: Blood pressure is 165/97 pulse 70 respirations 18 temperature 98.0 F weight is 280 pounds PE: PHYSICAL EXAMINATION: GENERAL: The patient is awake, alert, oriented, appropriate, very pleasant in demeanor HEENT: Shows normocephalic, atraumatic. Extraocular movements are intact and symmetrical. Oral cavity: Mucous membranes moist and pink. Dentition is intact. NECK: Shows anterior throat supple without palpable lymphadenopathy noted. Swallow reflex symmetrical. CHEST: Shows normal on inspection. Breath sounds are clear bilaterally, distant but no rales or rhonchi auscultated. HEART: Shows S1, S2 clear. No murmurs auscultated. ABDOMEN: Soft, nontender, nondistended. No palpable organomegaly is noted. BACK: Shows spine grossly in the midline. Normal-appearing cervical lordotic curvature. There is moderately increased thoracic kyphosis, some flattening of the lumbar lordotic curvature. Lumbar paraspinous muscles show symmetrical on inspection, on palpation shows some moderate tenderness diffusely throughout the upper, middle and lower distribution of the paraspinous muscles, but without specific trigger points, without radiation of pain. The patient has good rotational motion of the lumbar spine, both laterally as well as extension and flexion without significant difficulty. No tenderness over the spinous processes, sacrum or sacroiliac regions. EXTREMITIES: Lower extremities show deep tendon reflexes 1 in the patellar and tendo calcaneus tendons. Motor exam is 5 on a scale of 5 with right dorsiflexion, extension, quadriceps and hamstring flexion and 5/5 on the left. Peripheral pulses are 1+ posterior tibial. No peripheral edema is noted bilaterally. Lower extremities are warm and dry to touch, equal in color and appearance. SKIN: Shows warm and dry, good turgor. No edema. No sores, rashes or bruising throughout. Procedure: Procedure: Options discussed with patient. Patient's old chart was viewed as his current medication regimen updated current review of systems updated today as well. We will proceed with a lumbar epidural steroid injection stable fluoroscopic guidance. Risks were discussed including but not limited to: Bleeding, infection, possibility of epidural hematoma and subsequent neurological compromise, dural puncture, headaches, spinal cord and/or nerve damage, side effects of steroid medication, and poor results regarding pain control. Patient understands and wished to proceed. Patient return to clinic in approximately 4 weeks for follow-up, was counseled as to return appointment, active level, and side effects beware. We will electronically prescribe patient's oxycodone with instructions side effects to be aware discussed. Patient has had appropriate K tracks report as well as appropriate urinalyses to date and we will make this a 30-day supply. Medication Injected: Med Injected: Procedure is lumbar epidural steroid injection under local anesthetic using sterile prep and drape at the L5-S1 level using C-arm fluoroscopic guidance in both AP and lateral views medications injected is 120 mg Depo-Medrol +10mL preservative-free normal saline and 2 mL contrast- condition at discharge is stable patient tolerated procedure well had no complications. Condition at Discharge: Condition at Discharge: Condition at discharge is stable, patient Wilver the procedure well and had no complications. JUAN TAYLOR MD Aug 23, 2021 08:26
--- NOTE | 2021-08-23 08:27 | PDOC4 ---
Procedure Note: ICD 10 Code: ICD 10 Code: M54.17 M51.87 Procedure Note: Patient was consented for lumbar epidural steroid injection fluoroscopic guidance. Risks were discussed including but not limited to: Bleeding, infection, possibility of epidural hematoma and subsequent neurological compromise, dural puncture, headaches, spinal cord and/or nerve damage, side effects of steroid medication, and poor results regarding pain control. Patient understands and wished to proceed. Procedure is lumbar epidural steroid injection under local anesthetic using sterile prep and drape at the L5-S1 level using C-arm fluoroscopic guidance in both AP and lateral views medications injected is 120 mg Depo-Medrol +10mL preservative-free normal saline and 2 mL contrast- condition at discharge is stable patient tolerated procedure well had no complications. JUAN TAYLOR MD Aug 23, 2021 08:27
== END | disposition home or self-care (01) ==
LOC: PNCL 07:50
PROVIDERS: ATTEND Anesthesiology
DX: M51.16 Intervertebral disc disorders with radiculopathy, lumbar region (principal); Z79.82 Long term (current) use of aspirin; Z79.899 Other long term (current) drug therapy; Z72.89 Other problems related to lifestyle; Z88.0 Allergy status to penicillin; Z88.1 Allergy status to other antibiotic agents; Z88.2 Allergy status to sulfonamides
CPT/HCPCS: 62323; J1040; Q9965

== ENCOUNTER → 2021-09-20 | Outpatient (CLI) | payer MEDICARE ==
[~2021-09-20] MED LIST changes: -IOHEXOL 180 MG/ML 10 ML VIAL. ONE; -methylPREDNISolone ACETATE 80 MG/ML VIAL. ONE
--- NOTE | 2021-09-20 11:59 | PDOC ---
Progress Note - Pain Clinic Date of Service: DOS: DATE: 09/20/21 TIME: 11:57 Diagnosis: Dx: Lumbar radiculopathy with lumbar degenerative disc disease History or Present Illness: HPI: Telemedicine visit with patient today with full date of as well as full name for identity total time spent 12minutes telephone voice only 71-year-old male via telemedicine visit regarding refill of oxycodone patient is been on very stable regimen with medication for extended period of time without any significant side effects patient reports still pain in the low back and into the bilateral lower extremities did well after last visit which was August 23 had lumbar epidural steroid injection at that time reports pain decreased by about 70% but starting to return slowly patient reports is oxycodone does decrease the pain significantly by about 75% overall without any side effects. Patient has had appropriate K tracks report as well as appropriate urinalyses as well to date. We discussed options with the patient we will refill patient's m edication with electronic prescribing oxycodone 10/325 1 tablet every 6 hours as needed pain patient will be given a 30-day supply patient will follow up in approximately 30 days as scheduled. Physical Exam: PE: JUAN TAYLOR MD Sep 20, 2021 11:59
== END | disposition home or self-care (01) ==
LOC: PNCL 11:31
PROVIDERS: ATTEND Anesthesiology
DX: M51.16 Intervertebral disc disorders with radiculopathy, lumbar region (principal); Z79.82 Long term (current) use of aspirin; Z79.899 Other long term (current) drug therapy; Z72.89 Other problems related to lifestyle; Z88.0 Allergy status to penicillin; Z88.1 Allergy status to other antibiotic agents; Z88.2 Allergy status to sulfonamides
CPT/HCPCS: 99212; G0463

== ENCOUNTER → 2021-10-18 | Outpatient (CLI) | payer MEDICARE ==
[~2021-10-18] MED LIST changes: +DEXAMETHASONE PRES.FREE 10 MG/ML VIAL. ONE; +IOHEXOL 180 MG/ML 10 ML VIAL. ONE
--- NOTE | 2021-10-18 08:30 | PDOC ---
Progress Note - Pain Clinic Date of Service: DOS: DATE: 10/18/21 TIME: 08:26 Diagnosis: Dx: Lumbar radiculopathy with lumbar degenerative disc disease History or Present Illness: HPI: 71-year-old male returns for follow-up status post lumbar epidural steroid injection last seen August 23, 2021 status post lumbar epidural steroid injection with very good results about 50% improvement overall patient reports is down about 30% now has been returning for about the past 4 weeks or so pain in the low back and bilateral lower extremities posterior gluteus posterior thigh posterior calves bilaterally also some in the lateral thigh on the left patient reports that he is having some hands and feet swelling in the mornings which is becoming more noticeable he has had this for about a month now reports it does get better as he gets up and around during the day. Patient reports he is having no difficulty with urination and no other changes or any side effects from the injections. Patient rates his pain a 10 on scale 10 is worse over the past week 7 on average 5 to [place] is a 5 today patient describes aching sharp dull tight in the back burning and stabbing shooting in the legs radiating the lower extremities right essentially equal to left. Patient reports no loss of motor function no bowel or bladder incontinence. She does report significant fatigability of the lower extremities with walking standing specially bending and reaching but is able to void this most times even at work. Physical Exam: VS: Blood pressure is 150/87 pulse 68 respirations 18 temperature 98.0 F weight is 284 pounds. PE: PHYSICAL EXAMINATION: GENERAL: The patient is awake, alert, oriented, appropriate, very pleasant in demeanor HEENT: Shows normocephalic, atraumatic. Extraocular movements are intact and symmetrical. Oral cavity: Mucous membranes moist and pink. Dentition is in tact. NECK: Shows anterior throat supple without palpable lymphadenopathy noted. Swallow reflex symmetrical. CHEST: Shows normal on inspection. Breath sounds are clear bilaterally, distant but no rales rhonchi wheezes auscultated. HEART: Shows S1, S2 clear. No murmurs auscultated. ABDOMEN: Soft, nontender, nondistended. No palpable organomegaly is noted. No rebound or guarding demonstrated. BACK: Shows spine grossly in the midline. Normal-appearing cervical lordotic curvature. There is slightly increased thoracic kyphosis, some minor flattening of the lumbar lordotic curvature. Lumbar paraspinous muscles show symmetrical on inspection, on palpation shows some moderate tenderness diffusely throughout the upper, middle and lower distribution of the paraspinous muscles, but without specific trigger points, without radiation of pain. The patient has good rotational motion of the lumbar spine, both laterally as well as extension and flexion without significant difficulty. EXTREMITIES: Lower extremities show deep tendon reflexes 1+ in the patellar and tendo calcaneus tendons. Motor exam is 5 on a scale of 5 with right dorsiflexi on, extension, quadriceps and hamstring flexion and 5/5 on the left. Peripheral pulses are 1+ posterior tibial. 1+ peripheral edema is noted bilaterally. Lower extremities are warm and dry to touch, equal in color and appearance. SKIN: Shows warm and dry, good turgor. No edema. No sores, rashes or bruising throughout. Procedure: Procedure: Options discussed with the patient. Patient's old chart was reviewed his current medication regimen updated current review of systems updated today as well. We will proceed with a lumbar epidural steroid ejections today with fluoroscopic guidance. Risks were discussed including but not limited to: Bleeding, infection, possibility of epidural hematoma and subsequent neurological compromise, dural puncture, headaches, spinal cord and/or nerve damage, side effects of steroid medication, and poor results regarding pain control. Patient understands and wished to proceed. We discussed patient's edema and is more noticeable in the past few weeks he will follow-up with his primary care physician regarding this as well to better investigate possible causes. Patient return to clinic in approximately 2 weeks for follow-up, was counseled as to return appointment, active level, and side effects to be aware of. Medication Injected: Med Injected: Procedure is lumbar epidural steroid injection under local anesthetic using sterile prep and drape at the L5-S1 level using C-arm fluoroscopic guidance in both AP and lateral views medications injected is 20 mg dexamethasone +10mL preservative-free normal saline and 2 mL contrast- condition at discharge is stable patient tolerated procedure well had no complications. Condition at Discharge: Condition at Discharge: Condition at discharge stable, patient Wilver the procedure well and no complications. UJAN TAYLOR MD Oct 18, 2021 08:30
--- NOTE | 2021-10-18 08:31 | PDOC4 ---
Procedure Note: ICD 10 Code: ICD 10 Code: M54.17 M51.87 Procedure Note: Patient was consented for lumbar epidural steroid injection with fluoroscopic guidance. Risks were discussed including but not limited to: Bleeding, infection, possibility of epidural hematoma and subsequent neurological compromise, dural puncture, headaches, spinal cord and/or nerve damage, side effects of steroid medication, and poor results regarding pain control. Patient understands and wished to proceed. Procedure is lumbar epidural steroid injection under local anesthetic using sterile prep and drape at the L5-S1 level using C-arm fluoroscopic guidance in both AP and lateral views medications injected is 20 mg dexamethasone +10mL preservative-free normal saline and 2 mL contrast- condition at discharge is stable patient tolerated procedure well had no complications. JUAN TAYLOR MD Oct 18, 2021 08:30
== END | disposition home or self-care (01) ==
LOC: PNCL 07:43
PROVIDERS: ATTEND Anesthesiology
DX: M51.17 Intervertebral disc disorders with radiculopathy, lumbosacral region (principal); Z79.899 Other long term (current) drug therapy; Z88.1 Allergy status to other antibiotic agents
CPT/HCPCS: 62323; J1100; Q9965

== ENCOUNTER → 2021-11-18 | Outpatient (CLI) | payer MEDICARE ==
[~2021-11-18] MED LIST changes: -DEXAMETHASONE PRES.FREE 10 MG/ML VIAL. ONE; -IOHEXOL 180 MG/ML 10 ML VIAL. ONE
--- NOTE | 2021-11-18 16:28 | NUR ---
Patient called requesting a medication refill, verified name , pharmacy, medications, next appointment.Patient denied any new problems, constapation states his level of pain is a 5. Call transfered to Dr Mckeon.
--- NOTE | 2021-11-18 17:13 | PDOC ---
Progress Note - Pain Clinic Date of Service: DOS: DATE: 11/18/21 TIME: 17:11 Diagnosis: Dx: Lumbar radiculopathy with lumbar degenerative disc disease History or Present Illness: HPI: Telemedicine visit today with patient's identity verified with full name as well as full date of , total time spent 11 minutes, telephone, voice only 71-year-old male via telemedicine visit today requesting refill of oxycodone 10 mg. Patient reports he is doing very well with this in a very stable regimen reports about a 70 to 75% improvement with medications alone and without any side effects. Patient has been increase his activity doing some yard work more recently which is exacerbated the pain in the low back and lower extremities but only to a moderate extent patient reports he is able to rest and his medication is taking care of the pain to his satisfaction. Patient reports no side effects with the medication, has had appropriate K tracks reporting as well as appropriate urinalyses as well to date. We discussed options, and will refill patient's medication for 30-day prescription. Patient is given instructions well side effects aware with the medication we will follow-up in approximate 30 days as scheduled. Physical Exam: PE: JUAN TAYLOR MD Nov 18, 2021 17:13
== END | disposition home or self-care (01) ==
LOC: PNCL 15:09
PROVIDERS: ATTEND Anesthesiology
DX: M51.16 Intervertebral disc disorders with radiculopathy, lumbar region (principal); Z79.82 Long term (current) use of aspirin; Z79.899 Other long term (current) drug therapy; Z98.890 Other specified postprocedural states; Z88.2 Allergy status to sulfonamides; Z88.0 Allergy status to penicillin; Z88.1 Allergy status to other antibiotic agents; Z72.89 Other problems related to lifestyle
CPT/HCPCS: 99212; G0463

== ENCOUNTER → 2021-12-17 | Outpatient (CLI) | payer MEDICARE ==
[~2021-12-17] MED LIST changes: +IOHEXOL 180 MG/ML 10 ML VIAL. ONE
--- NOTE | 2021-12-17 08:38 | PDOC ---
Progress Note - Pain Clinic Date of Service: DOS: DATE: 12/17/21 TIME: 08:34 Diagnosis: Dx: Lumbar radiculopathy with lumbar degenerative disc disease History or Present Illness: HPI: 8-year-old male returns for follow-up status post lumbar epidural steroid injection on October 18, 2021 patient did very well with about a 75% improvement initially after the first 2 weeks pain began to return fairly significant low back and the bilateral lower extremities posterior gluteus posterior thighs posterior calves across the low back as well sooner than he had prior to earlier injections. 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 Patient reports he has had some constipation more recently with his medication as he is taking oxycodone up to 4 times daily and has for extended period of time we discussed this in detail and I will increase his hydration levels and have him carry bottled water with him when he is working especially in warmer weather. Patient understands and agrees we will make this adjustment with hydration as well. Patient also was given information regarding [id number] medications for helping the constipation as well and will try these also. Physical Exam: VS: Blood pressure is 142/79 pulse 76 respirations 18 temperature 98.3 F height 6 foot 1 inch weight is 280 pounds. PE: PHYSICAL EXAMINATION: GENERAL: The patient is awake, alert, oriented, appropriate, very pleasant in demeanor HEENT: Shows normocephalic, atraumatic. Extraocular movements are intact and symmetrical. Patient wearing eyeglasses. Oral cavity: Mucous membranes moist and pink. Dentition is intact. NECK: Shows anterior throat supple without palpable lymphadenopathy noted. Swallow reflex symmetrical. CHEST: Shows normal on inspection. Breath sounds are clear bilaterally, no rales or rhonchi auscultated. HEART: Shows S1, S2 clear. No murmurs auscultated. ABDOMEN: Soft, nontender, nondistended. No palpable organomegaly is noted. BACK: Shows spine grossly in the midline. Normal-appearing cervical lordotic curvature. There is slightly increased thoracic kyphosis, some flattening of the lumbar lordotic curvature. Lumbar paraspinous muscles show symmetrical on inspection, on palpation shows some moderate tenderness diffusely throughout the upper, middle and lower distribution of the paraspinous muscles, but without specific trigger points, without radiation of pain. The patient has good rotational motion of the lumbar spine, both laterally as well as extension and flexion without significant difficulty. EXTREMITIES: Lower extremities show deep tendon reflexes 1+ in the patellar and tendo calcaneus tendons. Motor exam is 5 on a scale of 5 with right dorsiflexion, extension, quadriceps and hamstring flexion and 5/5 on the left. Peripheral pulses are 1+ posterior tibial. No peripheral edema is noted bilaterally. Lower extremities are warm and dry to touch, equal in color and appearance. SKIN: Shows warm and dry, good turgor. No edema. No sores, rashes or bruising throughout. Procedure: Procedure: Options discussed with patient. Patient's old chart was uses current medication regimen updated current review of systems updated today as well. We will procee d with a lumbar epidural steroid injection today with fluoroscopic guidance. Risks were discussed including but not limited to: Bleeding, infection, possibility of epidural hematoma and subsequent neurological compromise, dural puncture, headaches, spinal cord and/or nerve damage, side effects of steroid medication, and poor results regarding pain control. Patient understands and wished to proceed. Patient will follow up in approximately 30 days for follow- up, was counseled as to return appointment, activity level, and side effects to be aware of. Patient will be given refill prescription for oxycodone as well with instructions and side effects beware discussed once again. Patient has had appropriate K tracks report as well as appropriate urinalyses to date as well. Medication Injected: Med Injected: Procedure is lumbar epidural steroid injection under local anesthetic using sterile prep and drape at the L5-S1 level using C-arm fluoroscopic guidance in both AP and lateral views medications injected is 20 mg dexamethasone +10mL preservative-free normal saline and 2 mL contrast- condition at discharge is stable patient tolerated procedure well had no complications. Condition at Discharge: Condition at Discharge: Condition at discharge is stable, patient tolerated procedure well and had no complications. JUAN TAYLOR MD December 17, 2021 08:38
--- NOTE | 2021-12-17 08:39 | PDOC4 ---
Procedure Note: ICD 10 Code: ICD 10 Code: M54.17 M51.87 Procedure Note: Patient was consented for lumbar epidural steroid injection with fluoroscopic guidance. Risks were discussed including but not limited to: Bleeding, infection, possibility of epidural hematoma and subsequent neurological compromise, dural puncture, headaches, spinal cord and/or nerve damage, side effects of steroid medication, and poor results regarding pain control. Patient understands and wished to proceed. Procedure is lumbar epidural steroid injection under local anesthetic using sterile prep and drape at the L5-S1 level using C-arm fluoroscopic guidance in both AP and lateral views medications injected is 20 mg dexamethasone +10mL preservative-free normal saline and 2 mL contrast- condition at discharge is stable patient tolerated procedure well had no complications. JUAN TAYLOR MD December 17, 2021 08:39
== END | disposition home or self-care (01) ==
LOC: PNCL 07:54
PROVIDERS: ATTEND Anesthesiology
DX: M51.16 Intervertebral disc disorders with radiculopathy, lumbar region (principal); Z79.82 Long term (current) use of aspirin; Z79.899 Other long term (current) drug therapy; Z72.89 Other problems related to lifestyle; Z88.0 Allergy status to penicillin; Z88.2 Allergy status to sulfonamides; Z88.1 Allergy status to other antibiotic agents
CPT/HCPCS: 62323; Q9965